=== PATIENT | female | born 1930 | race Caucasian/White ===

== ENCOUNTER → 2017-07-01 | Outpatient (CLI) | payer OTHER, BC ==
[~2017-07-01] VITALS: Ht 162.6 cm; Wt 71.7 kg
[~2017-07-01] MED LIST: ALDACTAZIDE 251 EAC1 PO; GABAPENTIN 100100 MG PO; KLOR-CON 1010 MEQ PO; LEVOTHYROXINE100 MC1 PO; LIPITOR 20 MG T20 M1 PO; MOBIC7.5 MG PO; NORCO 5-325 TA1 EACH PO; PREMPRO 0.3 MG1 EACH PO
--- NOTE | ~2017-07-01 | HPC ---
[facility] [address] [place] [address] PAIN MANAGEMENT CONSULTATION Name: HYUN THORNTON Room #: REG ADELAIDA Ayon#: [id number] Admission: 07/01/17 Attend Phys: Payton Landa MD Discharge: Date of : 32 Report #: [id number] THIS REPORT FOR: //name// CC: SUMI Landa DATE OF SERVICE: 07/01/2017 CHIEF COMPLAINT: Moved here from [place] and would like to be followed in the pain clinic. FOLLOWUP HISTORY: The patient is a very pleasant 86-year-old female who has a history of back pain. She has had surgery on three occasions from 1996 through 2000. She continues to have some pain and discomfort, which radiates down into her leg. She finds that gabapentin has been helpful. She does note some swelling in her legs as a result of this medication. She has undergone what sounds like epidural steroid injections and finds that they have been beneficial for about 4 months. Last injection was 02/2007. The patient finds that hydrocodone 5/325 one p.o. t.i.d. is helpful and enables her to engage in activities of daily living. She is having no problems with mentation or any untoward problems with use of this medication. ALLERGIES: TRAMADOL -- the patient states that she developed a dark area on her right shoulder. After stopping tramadol, this problem improved. CELEBREX. PAST MEDICAL HISTORY: Hypothyroidism, hyperlipidemia, osteopenia, venous insufficiency, hypertension, osteoarthritis, rosacea, vulvar lichen sclerosus, severe lumbar spondylosis. CURRENT MEDICATIONS: Gabapentin 100 mg in the morning and 100 mg in noon, 200 mg at bedtime; potassium 10 mEq, hydrocodone 5/325 mg tablets t.i.d., meloxicam 7.5 mg -- no GI complaints, Prempro 0.3 mg -- 1.5 mg tablets daily, Lipitor 20 mg, Synthroid 100 mcg, Aldactazide 25/25. PAST SURGICAL HISTORY: 1. Three prior lumbar surgeries with history of fusion from L4-L5. 2. Bilateral vein stripping. 3. Tonsillectomy. 4. Vulvar biopsy. 5. Bilateral cataract surgery. 6. Carpal tunnel surgery bilaterally. 7. Left cystectomy. FAMILY HISTORY: Father of a stroke. Mother of heart disease and breast cancer. Brother of Parkinson's. [address] [address] PAIN MANAGEMENT CONSULTATION Name: HYUN THORNTON Room #: REG CLI Nany#: [id number] Admission: 07/01/17 Attend Phys: Payton Landa MD Discharge: Date of : 32 Report #: [id number] SOCIAL HISTORY: She has four children, has moved with her who is a physician to [place]. has cancer. Distant history of smoking, quit 30 years ago. Occasional alcohol. Denies use of recreational drugs. REVIEW OF SYSTEMS: Questionnaire in the chart indicates generally good health, wears glasses for reading, uses stool softeners, weakness, varicose veins, numbness and tingling sensation in the right leg and down to the foot, improves with transforaminal epidural steroid injections; thyroid disease. PHYSICAL EXAMINATION: Blood pressure is 162/78, pulse 73, respiratory rate 14 and room air saturation is 97%. The patient walks with use of a cane. She feels that this helps to keep her in an upright position rather than slightly leaning to the right side. Continues to walk in the care home and feels that walking is okay. She has some swelling with compression stocking on the left and right feet. IMPRESSION: 1. Lumbar radiculopathy status post three prior surgeries with fusion at L4-L5. 2. Hypothyroidism. 3. Hyperlipidemia. 4. Osteopenia. 5. Venous insufficiency. 6. Hypertension. 7. Osteoarthritis. 8. Rosacea. 9. Vulvar lichen sclerosus. RECOMMENDATION: The patient has undergone transforaminal epidural steroid injections in the past with improvement. The patient feels that things are stable and does not need an injection at this juncture. She will continue with her current medical regimen. It seems like it is reasonable. She feels that this has been working for. Should things need to be adjusted in the future, we could make those adjustments. If the patient notes worsening of her pain, she could return to the pain clinic at which time she could undergo an epidural steroid injection if needed. We would like to thank you for letting us participate in her care. <ELECTRONICALLY SIGNED> By: Payton Landa MD 07/02/17 0822 1121 2339 Payton Landa MD /CLARKE
[2017-07-01 09:35] VITALS: BP 162/78
== END | disposition home or self-care (01) ==
LOC: PAIN 07:01
DX: M47.816 Spondylosis without myelopathy or radiculopathy, lumbar region (principal); E03.9 Hypothyroidism, unspecified; E78.5 Hyperlipidemia, unspecified; I10 Essential (primary) hypertension; M19.90 Unspecified osteoarthritis, unspecified site; Z80.3 Family history of malignant neoplasm of breast; Z88.8 Allergy status to other drugs, medicaments and biological substances

== ENCOUNTER → 2017-09-18 | Outpatient (CLI) | payer OTHER, BC ==
[~2017-09-18] VITALS: Ht 162.6 cm; Wt 71.2 kg
[~2017-09-18] MED LIST changes: +AMLODIPINE BESY10 MG PO; +MAGOX 400400 MG PO; +NORVASC5 MG PO; +OMEPRAZOLE 20 M20 M1 PO
--- NOTE | ~2017-09-18 | HPC ---
[facility] [address] [address] [place] [address] PAIN MANAGEMENT CONSULTATION Name: HYUN THORNTON Room #: REG ADELAIDA José.#: [id number] Admission: 09/18/17 Attend Phys: Payton Landa MD Discharge: Date of : 32 Report #: [id number] THIS REPORT FOR: //name// CC: SUMI Hart DATE OF SERVICE: 09/18/2017 FOLLOWUP COMPLAINT: "Pain is in the low back going down into my right buttocks and right thigh, here for an injection." FOLLOWUP HISTORY: The patient is an 86-year-old female who has history of back pain. She has had three surgeries since 1996. She finds that her pain has become more problematic with pain radiating down into her left as well as her right leg in the L4-L5 distribution today. She has undergone epidural steroid injections and found them beneficial. At this point, she is noting a rise in her pain. Rates it as a 5/10. She has pain and discomfort with numbness and tingling radiating down into her legs in the L5 distribution bilaterally. She continues to use gabapentin and hydrocodone 5/325 p.r.n. Finds that Mobic is helpful. She continues with these medications. ALLERGIES: TRAMADOL, CELEBREX. CURRENT MEDICATIONS: Gabapentin 100 mg t.i.d. one capsule morning, one afternoon, and one at bedtime, potassium 10 mEq, hydrocodone 5/325, meloxicam 7.5 mg, estrogen 0.3 mcg/1.5 mcg, Lipitor 20 mg, levothyroxine 100 mcg, Aldactazide 25/25. PHYSICAL EXAMINATION: VITAL SIGNS: Blood pressure 125/81, pulse 74, respiratory rate 16, room air saturation 97%. Height 5 feet 4 inches, weight 157 pounds, BMI is 26. GENERAL: The patient does need some help with walking. She has not fallen in the last 3 months. The patient uses a cane. No acute distress. EYES: Conjunctivae and lids appear normal. Nonicterus. Ears normal. Moist mucous membranes. HEAD: Atraumatic. NECK: Supple, nontender, no masses. RESPIRATORY: Breathing easy. No wheezes, no rhonchi. CARDIOVASCULAR: Regular rate. ABDOMEN: Nontender. EXTREMITIES: The patient complains of pain and discomfort in the lower portion of her back with pain radiating down into her L5-S1 distribution bilaterally. Walks with use of a cane. IMPRESSION: [facility] [address] [place] [address] PAIN MANAGEMENT CONSULTATION Name: HYUN THORNTON Room #: REG CLAna Nany#: [id number] Admission: 09/18/17 Attend Phys: Payton Landa MD Discharge: Date of : 32 Report #: [id number] 1. Lumbar radiculopathy status post three surgeries with fusion in the back in the L4-L5 area with rods and pedicle screws. 2. Hypothyroidism. 3. Hyperlipidemia. 4. Osteopenia. 5. Venous insufficiency. 6. Hypertension. 7. Osteoarthritis. 8. Rosacea. 9. Vulvar lichen sclerosus. RECOMMENDATIONS: We discussed the treatment plan with the patient. Risk of an epidural steroid injection was discussed given that the patient has had 3 back surgeries in the past. There remains a considerable amount of scar tissue. The possibility of infection, bleeding, worsening of pain, nerve trauma and spinal headache were discussed. The patient feels that she has gotten significant benefit from epidural steroid injections in the past. We will proceed using the transforaminal approach. PROCEDURE NOTE: The patient was taken was taken to the procedure room. Assistance was provided to help her get on the table. Her back was sterilely prepped with a Betadine solution and allowed to dry. A fluoroscopy technique using AP and lateral imaging was performed. The right L4-L5 area was sterilely prepped. A 20-gauge spinal needle was then advanced into the appropriate position using fluoroscopy. After appropriate placement, a total of 80 mg Depo-Medrol was injected. This area had been infiltrated with 0.25% bupivacaine. The contralateral side was treated in the same fashion. After appropriate placement of a 20-gauge spinal needle using the anterior and lateral approach, a total of 80 mg Depo-Medrol was injected. Total of 47 seconds fluoroscopy time was used. The patient's back was dried. A Band-Aid was placed at both the left and the right transforaminal site. The patient was then taken to the recovery room where she remained for an appropriate amount of time. There were no complications. Pain decreased to 3 at the time of discharge. She will follow up in the future as needed. We would like to thank you for letting us participate in her care. We hope she continues to improve. <ELECTRONICALLY SIGNED> By: Payton Landa MD 09/30/17 0837 1250 1817 Payton Landa MD /CLARKE
[2017-09-18 13:39] VITALS: BP 123/81
== END | disposition home or self-care (01) ==
LOC: PAIN 07:18
DX: M54.16 Radiculopathy, lumbar region (principal); E03.9 Hypothyroidism, unspecified; E78.5 Hyperlipidemia, unspecified; M85.80 Other specified disorders of bone density and structure, unspecified site; I87.2 Venous insufficiency (chronic) (peripheral); M19.90 Unspecified osteoarthritis, unspecified site; L71.9 Rosacea, unspecified; L90.0 Lichen sclerosus et atrophicus; Z88.8 Allergy status to other drugs, medicaments and biological substances; Z79.891 Long term (current) use of opiate analgesic; Z79.899 Other long term (current) drug therapy; Z98.890 Other specified postprocedural states

== ENCOUNTER → 2017-11-12 | Outpatient (CLI) | payer OTHER, BC | LOC: RAD 14:23 | DX: R05 Cough (principal); R50.9 Fever, unspecified; Z96.652 Presence of left artificial knee joint; Z98.890 Other specified postprocedural states ==

== ENCOUNTER → 2017-11-12 | Outpatient (CLI) | payer OTHER, BC ==
[2017-11-12 14:23] LABS: HEMOGLOBIN 13.2 gm/dL (12.0-15.0); MCH 31.4 pg (26.0-34.0); MCHC 33.8 g/dL (28.0-37.0); MCV 92.8 fL (80.0-100.0); PLATELET COUNT 352 thou/uL (150-400); RDW 13.5 % (10.5-14.5); WBC 10.4 thou/uL (4.0-11.0)
[2017-11-12 14:31] LABS: ALBUMIN 3.5 g/dL (3.4-5.0); CALCIUM 10.1 mg/dL (8.5-10.1); MAGNESIUM 1.4 mg/dL (1.8-2.4); POTASSIUM 3.7 mmol/L (3.5-5.1); TOTAL BILIRUBIN 0.3 mg/dL (<0.1-1.0); TOTAL PROTEIN 7.7 g/dL (6.4-8.2)
[2017-11-12 14:57] LABS: ABSOLUTE NEUTROPHILS 7.4 thou/uL (1.4-8.2); ANISOCYTOSIS SLIGHT
== END ==
LOC: SEN 13:17
PROVIDERS: Registered Nurse
DX: R05 Cough (principal); R50.9 Fever, unspecified; R41.3 Other amnesia; Z96.653 Presence of artificial knee joint, bilateral; Z96.612 Presence of left artificial shoulder joint; Z98.890 Other specified postprocedural states

== ENCOUNTER → 2018-01-14 | Outpatient (CLI) | payer OTHER, BC ==
[~2018-01-14] MED LIST changes: -AMLODIPINE BESY10 MG PO; -MAGOX 400400 MG PO; -NORVASC5 MG PO; -OMEPRAZOLE 20 M20 M1 PO
--- NOTE | ~2018-01-14 | EKG ---
[address] [address] ELECTROCARDIOGRAM REPORT Name: HYUN THORNTON JOSE R Room #: REG CLAna Ayon#: [id number] Admission: 01/14/18 Attend Phys: Luis Armando Coello DO Discharge: Date of : 32 Report #: [id number] THIS REPORT FOR: //name// [facility] Test Date: 2018-01-14 Test Time: 11:06:47 Pat Name: HYUN THORNTON Department: Room: Gender: F Dentist Private Practice: [facility]OME[facility] : 1930 Requested By: Chiquita Solorzano Order Number: [id number] MD: Pilo Alvarado Measurements Intervals [place] Rate: 67 P: 31 TN: 202 QRS: 221 QRSD: 94 T: 23 QT: 405 QTc: 428 Interpretive Statements Sinus rhythm posterior QRS axis No previous ECG available for comparison Electronically Signed On 01-15-2018 8:27:31 CDT by Pilo Alvarado [email or web address] <ELECTRONICALLY SIGNED> By: Pilo Alvarado MD, [facility] 01/15/18 0827 1106 1106 Pilo Alvarado MD, FACC /EPI
[2018-01-14 10:10] VITALS: BP 160/90
[2018-01-14 11:22] LABS: ABSOLUTE NEUTROPHILS 8.5 thou/uL (1.4-8.2); EOSINOPHILS 1.7 % (0.0-3.0); HEMATOCRIT 39.3 % (37.0-47.0); HEMOGLOBIN 13.7 gm/dL (12.0-15.0); LYMPHOCYTES 9.6 % (24.0-44.0); MCH 32.6 pg (26.0-34.0); MCHC 34.8 g/dL (28.0-37.0); MCV 93.6 fL (80.0-100.0); MONOCYTES 6.7 % (1.0-8.0); PLATELET COUNT 329 thou/uL (150-400); RDW 12.3 % (10.5-14.5); WBC 10.5 thou/uL (4.0-11.0)
[2018-01-14 11:22] LABS: URINE BILIRUBIN NEGATIVE (Negative); URINE BLOOD NEGATIVE (Negative); URINE CLARITY CLEAR; URINE COLOR YELLOW; URINE GLUCOSE-RANDOM* NEGATIVE (Negative); URINE KETONES NEGATIVE (Negative); URINE NITRITE-REFLEX NEGATIVE (Negative); URINE PROTEIN (DIPSTICK) NEGATIVE (Negative); URINE SPECIFIC GRAVITY <= 1.005 (1.005-1.035); URINE UROBILINOGEN 0.2 E.U./dl (0.2-1.0)
[2018-01-14 11:23] LABS: URINE LEUKOCYTES-REFLEX TRACE (Negative)
[2018-01-14 11:38] LABS: ALBUMIN 3.7 g/dL (3.4-5.0); ANION GAP 11 mmol/L (7-16); BUN 23 mg/dL (7-18); CALCIUM 8.9 mg/dL (8.5-10.1); CHLORIDE 98 mmol/L (98-107); CO2 26 mmol/L (21-32); CREATININE 1.1 mg/dL (0.6-1.0); GLUCOSE 97 mg/dL (74-106); MAGNESIUM 1.4 mg/dL (1.8-2.4); POTASSIUM 3.2 mmol/L (3.5-5.1); SGOT 22 U/L (15-37); SGPT 36 U/L (30-65); SODIUM 135 mmol/L (136-145); TOTAL BILIRUBIN 0.4 mg/dL (<0.1-1.0); TOTAL PROTEIN 7.4 g/dL (6.4-8.2); TROPONIN-I < 0.04 ng/mL (<0.06)
== END ==
LOC: SEN 09:07 → CV 09:07
PROVIDERS: Registered Nurse
DX: R07.9 Chest pain, unspecified (principal)

== ENCOUNTER → 2018-01-22 | Outpatient (CLI) | payer OTHER, BC ==
[~2018-01-22] VITALS: Ht 162.6 cm; Wt 69.6 kg
[~2018-01-22] MED LIST changes: +AMLODIPINE BESY10 MG PO; +NORVASC5 MG PO; +OMEPRAZOLE 20 M20 M1 PO
--- NOTE | ~2018-01-22 | HPC ---
[facility] [place] [address] [place] [address] PAIN MANAGEMENT CONSULTATION Name: HYUN THORNTON Room #: REG FRANSISCOAna José.#: [id number] Admission: 01/22/18 Attend Phys: Payton Landa MD Discharge: Date of : 32 Report #: [id number] THIS REPORT FOR: //name// CC: Luis Armando Hart DATE OF SERVICE: 01/22/2018 FOLLOWUP COMPLAINT: "Low back pain, its still going down into my left hip, left leg and ankle". FOLLOWUP HISTORY: The patient is an 87-year-old female who has been seen in the pain clinic and undergo an epidural steroid injection using the transforaminal ____. She has noted improvement in the past with this procedure. She returns today indicating that she had gleaned benefits from the last injection, but that her pain still is somewhat problematic and is a 5/10 at this juncture. As you may recall, she has had surgeries with pedicle screws and rods in the lower extremity or in the lower back area. She continues to use gabapentin, hydrocodone, Meloxicam to help quell her pain and discomfort. She has had no complications from the last injection. She describes it as a gnawing, sharp shooting pain. Pain is worsened when she stands in one place for too long. Walking is problematic. Notes that the pain improved somewhat with her medications as well as when she sits. Pain at this juncture, continues to go down the left hip, leg and ankle. The pain at the last treatment involved the right leg. She would like to proceed with another injection and hope for improvement in her pain. ALLERGIES: TRAMADOL. CURRENT MEDICATIONS: Meloxicam 7.5 mg daily, estrogen /Prempro 0.3 mg/1.5 mg tablet, Synthroid 100 mcg, Aldactazide 25/25, hydrocodone 5/325 one p.o. q.4-6h. p.r.n. pain, gabapentin 1 capsule in the morning, 1 capsule at noon, and 2 capsules at bedtime, omeprazole 20 mg, amlodipine 5 mg. PAIN CLINIC ASSESSMENT: 1. The patient has some spondylosis with changes in the lumbar area. 2. History of rheumatoid arthritis. The patient is not being treated specifically for rheumatoid arthritis. 3. Height 5 feet 4 inches, weight 154 pounds, BMI is 26. 4. Vital signs: Blood pressure 188/108, pulse 78, respiratory rate 20, room air O2 saturation is 98%. 5. Pain intensity 5/10. 6. Fall risk. The patient has not fallen in the last 3 months. She does use a cane for support and as an ambulatory device. 7. Blood thinner. The patient [place] [address] PAIN MANAGEMENT CONSULTATION Name: HYUN THORNTON JOSE R Room #: REG CLI Nany#: [id number] Admission: 01/22/18 Attend Phys: Payton Landa MD Discharge: Date of : 32 Report #: [id number] 8. History of hypertension. The patient is being treated for hypertension. 9. Risk assessment tool 09/23, which is low for opioid use. 10. Functional assessment tool indicating moderate problems with pain secondary to activities of daily living. 11. Drug use. The patient denies use of recreational drugs. 12. Tobacco. The patient has never smoked. 13. Alcohol, patient occasionally drinks an alcoholic beverage. PHYSICAL EXAMINATION: GENERAL: The patient is a well-developed white female, appears her stated age. She is alert and oriented x 3. Affect is appropriate. Speech is fluent. HEENT: Normocephalic, atraumatic. Extraocular eye muscles intact. Hearing, generally within normal limits. Mucous membranes are moist. Neck, good range of motion. HEART: Regular rate. MUSCULOSKELETAL: Upper extremity muscle strength is judged to be 4+ for the major muscle groups of the upper extremity. Lower extremity muscle strength is judged to be 4+ for the major muscle groups of the lower extremity. She has pain and discomfort, which radiates down into the left L5-S1 nerve root distribution. She is accompanied by her son who is an Emergency Room physician. IMPRESSION: 1. Lumbar radiculopathy status post three surgeries in the lower back with fusion at L4-L5. 2. Hypothyroidism. 3. Hyperlipidemia. 4. Osteopenia. 5. Venous insufficiency. 6. Hypertension. 7. Osteoarthritis. 8. Rosacea. 9. Vulvar Lichen sclerosus. RECOMMENDATIONS: We discussed treatment options with the patient and her son who is an Emergency Room physician. Risks and benefits of the procedure were discussed. They could include but are not limited to infection, increased muscle soreness, headache, bleeding, worsening of pain, nerve damage. She and he agreed to proceed. PROCEDURE NOTE: The patient was taken to the procedure room. She was assisted in getting on the examination table. Fluoroscopy using the anterior, posterior as well as lateral viewing was a cyst, it was provided to assist a needle placement. Her back had been sterilely prepped in the lumbar L5-S1 area. A 20-gauge spinal needle was then advanced into the appropriate, L5-S1 area. After appropriate confirmation, a total of 80 mg Depo-Medrol with 2 mL 0.25% bupivacaine was injected. The patient tolerated the procedure well. There were [facility] [place] [address] PAIN MANAGEMENT CONSULTATION Name: HYUN THORNTON JOSE R Room #: REG Ana José.#: [id number] Admission: 01/22/18 Attend Phys: Payton Landa MD Discharge: Date of : 32 Report #: [id number] no complications. She remained in the pain clinic for an appropriate amount of time. Total of 47 seconds fluoroscopy time was used. The patient will follow up in the near future as needed. We would like to thank you for letting us participate in her care. We hope she continues to improve. By: 1343 1845 Payton Landa MD /nt
[2018-01-22 08:38] VITALS: BP 188/108
== END | disposition home or self-care (01) ==
LOC: PAIN 08:13
DX: M54.16 Radiculopathy, lumbar region (principal); G89.29 Other chronic pain; I10 Essential (primary) hypertension; E03.9 Hypothyroidism, unspecified; E78.5 Hyperlipidemia, unspecified; M19.90 Unspecified osteoarthritis, unspecified site; M81.0 Age-related osteoporosis without current pathological fracture; I87.2 Venous insufficiency (chronic) (peripheral); L71.9 Rosacea, unspecified; N90.4 Leukoplakia of vulva; Z88.8 Allergy status to other drugs, medicaments and biological substances; Z79.899 Other long term (current) drug therapy; Z98.890 Other specified postprocedural states; Z79.891 Long term (current) use of opiate analgesic

== ENCOUNTER → 2018-02-05 | Outpatient (CLI) | payer OTHER, BC ==
[~2018-02-05] VITALS: Ht 162.6 cm; Wt 70.4 kg
[~2018-02-05] MED LIST changes: +MAGOX 400400 MG PO
--- NOTE | ~2018-02-05 | HPC ---
[facility] [address] [place] [address] PAIN MANAGEMENT CONSULTATION Name: HYUN THORNTON Room #: REG ADELAIDA José.#: [id number] Admission: 02/05/18 Attend Phys: Payton Landa MD Discharge: Date of : 32 Report #: [id number] THIS REPORT FOR: //name// CC: Luis Armando Landa DATE OF SERVICE: 02/12/2018 FOLLOWUP COMPLAINT: Low back pain that still goes down into my left hip and around the left outside of my thigh. This also wrapping around the front of my calf and ankle. FOLLOWUP HISTORY: The patient is an 87-year-old female who has moved to [place] from [place]. She has a complaint of low back pain. She has undergone back surgery in the past. She has rods and pedicle screws in place in the low back area for stabilization. She is having pain, which is radiating down the left side of her hip and down into the thigh in the L4/L5 distribution. She has undergone transforaminal epidural steroid injections on the right side as well as the left side. She notes that the right side has improved, but continues to have some discomfort radiating down into her left hip area. She would like to proceed with another injection. The transforaminal approach was used at the last visit and we discussed it. She would like to proceed with another. Her son who is a Emergency Room doctor concurs that there will be a reasonable procedure at this juncture. ALLERGIES: TRAMADOL. CURRENT MEDICATIONS: Meloxicam 7.5 mg daily, estrogen/Prempro 0.3 mg/1.5 mg tablets, Synthroid 100 mcg, Aldactazide 25/25, hydrocodone 5/325 one p.o. 4-6 hours p.r.n. pain, gabapentin 1 capsule in the morning, 1 capsule at noon, 2 capsules at bedtime, omeprazole 20 mg, amlodipine 5 mg daily. PAIN ASSESSMENT: 1. History of osteoarthritis involving low back area with pedicle screws in place. 2. Height 5 feet 4 inches, weight 155 pounds, BMI is 26. 3. Vital signs: Blood pressure 158/92, pulse 67, respiratory rate 18, room air saturation 97%. 4. Pain intensity 3-4 now can rise to the level 8 in the afternoon. 5. Fall risk. The patient has not fallen in the last 3 months. Does need some assistance with walking. 6. The patient is not on a blood thinner. 7. History of hypertension. The patient has not been treated for hypertension. 8. Opioid therapy greater than 6 weeks. The patient is on an opioid contract. 9. Risk assessment tool, low risk [place] [address] PAIN MANAGEMENT CONSULTATION Name: THORNTONHYUN Room #: REG CLAna Ayon#: [id number] Admission: 02/05/18 Attend Phys: Payton Landa MD Discharge: Date of : 32 Report #: [id number] 10. Functional assessment tool 18 out of 70 showing moderate to mild effects on activities of daily living secondary to the pain. 11. Recreational drug use. Denies use of recreational drugs. 12. Tobacco: The patient has never smoked. 13. Alcohol. The patient rarely uses alcoholic beverages. PHYSICAL EXAMINATION: GENERAL: The patient is a well-developed white female. She appears her stated age. She is alert and oriented. Her affect is appropriate. Speech is fluent, has a good grasp of the situation. HEENT: Normocephalic, atraumatic. Extraocular eye muscles intact. Hearing within normal limits. Sclerae nonicteric. Mucous membranes are moist. NECK: Without adenopathy. Good range of motion. HEART: Regular rate. ABDOMEN: Nontender. MUSCULOSKELETAL: Upper extremity muscle strength is judged to be 4/5 for the major muscle groups of the upper extremity. Lower extremity muscle strength is judged to be 4+ for the major muscle groups of the lower extremity. She has pain and discomfort which is radiating down into the left L4-L5 dermatomal distribution. IMPRESSION: 1. Lumbar radiculopathy status post three surgeries in her lower back with fusion at L4-L5 with pain radiating in the L5/L4 dermatomal distribution. 2. Hypothyroidism. 3. Hyperlipidemia. 4. Osteopenia. 5. Venous insufficiency. 6. Hypertension. 7. Osteoarthritis. 8. Rosacea. 9. Vulvar lichen sclerosus. RECOMMENDATIONS: We discussed treatment options with the patient and her son who is the Emergency Room physician. Again, we would proceed with an epidural steroid injection using the transforaminal approach given that the anatomy has been altered secondary to surgery. We will proceed with an injection with hopes that she would clean benefit from this. Risks and benefits of the procedure, which could include infection, increased muscle soreness, worsening of pain, increased pain, no improvement were discussed and she elects to proceed. PROCEDURE NOTE: The patient was taken to the fluoroscopy area. She was assisted in getting on the fluoroscopy table. She was placed in the prone position. Her back was sterilely prepped with a Betadine solution. Fluoroscopy using anterior, posterior as well as lateral imaging were used to place the needle at the left transforaminal L5/L4 area. This area had been sterilely [address] [address] PAIN MANAGEMENT CONSULTATION Name: HYUN THORNTON Room #: REG [facility].#: [id number] Admission: 02/05/18 Attend Phys: Payton Landa MD Discharge: Date of : 32 Report #: [id number] prepped with Betadine and infiltrated with 0.25% bupivacaine. A total of 80 mg Depo-Medrol was injected after the needle was appropriately placed and corroborated using fluoroscopy. A total of 80 mg Depo-Medrol was injected with 1 mL of 0.25% bupivacaine. The patient tolerated the procedure well. There were no complications. Her pain changed from 4-1-2 at the time of discharge. Total of 48 seconds fluoroscopy time was used. We would like to thank you for letting us participate in her care. We hope she continues to improve. By: [id number] [id number] Payton Landa MD /CL[place]
[2018-02-05 09:01] VITALS: BP 158/92
== END | disposition home or self-care (01) ==
LOC: PAIN 07:16
DX: M54.16 Radiculopathy, lumbar region (principal); G89.29 Other chronic pain; I10 Essential (primary) hypertension; E03.9 Hypothyroidism, unspecified; E78.5 Hyperlipidemia, unspecified; M85.80 Other specified disorders of bone density and structure, unspecified site; I87.2 Venous insufficiency (chronic) (peripheral); M19.90 Unspecified osteoarthritis, unspecified site; L71.9 Rosacea, unspecified; Z88.8 Allergy status to other drugs, medicaments and biological substances; Z79.899 Other long term (current) drug therapy; Z79.891 Long term (current) use of opiate analgesic; Z98.890 Other specified postprocedural states

== ENCOUNTER → 2018-04-14 | Outpatient (CLI) | payer OTHER, BC ==
[~2018-04-14] VITALS: Ht 162.6 cm; Wt 70.4 kg
--- NOTE | ~2018-04-14 | HPC ---
[facility] [place] [address] PAIN MANAGEMENT CONSULTATION Name: HYUN THORNTON Room #: REG ADELAIDA José.#: [id number] Admission: 04/14/18 Attend Phys: Payton Landa MD Discharge: Date of : 32 Report #: [id number] THIS REPORT FOR: //name// CC: Luis Armando Hart DATE OF SERVICE: 04/14/2018 FOLLOWUP COMPLAINT: "Pain still is down in the low back and going down into my left leg and thigh." FOLLOWUP HISTORY: The patient is an 87-year-old female who has been seen in the Pain Clinic in the past because of lumbar radiculopathy. As you recall, she has had back problems. She has undergone transforaminal epidural steroid injections and gleaned some benefit from these. She continues to have pain, which is still quite problematic. She has had rods and pedicle screws placed. She also has spacers in the L4-L5 area. She feels she has tried Medrol Dosepak in the past. She continues to find that the sciatica is quite problematic. She is noting more pain when she is standing in one place for too long. Walking exacerbates the pain as well. Use of her medications and sitting can be helpful. Pain is continuing to be problematic as it radiates down into her leg and she has a perception that it is wrapping around her calf and in the ankle on the left side. At this juncture, because her pain continues to be quite problematic, she would like to proceed with another epidural steroid injection. ALLERGIES: TRAMADOL. CURRENT MEDICATIONS: Meloxicam 7.5 mg; estrogen/Prempro 0.3 mg/1.5 mg tablets; Synthroid 100 mcg; Aldactazide 25/25; hydrocodone 5/325 one p.o. q. 4-6 hours p.r.n. pain; gabapentin 1 capsule in the morning, 1 capsule at noon, and 2 capsules at bedtime; omeprazole 20 mg; amlodipine 5 mg. PAIN CLINIC ASSESSMENT: 1. The patient has a history of osteoarthritis in the low back area and has pedicle screws in place. 2. Height 5 feet 4 inches, weight 155 pounds, BMI is 26.2. 3. Vital signs: Blood pressure 164/92, pulse 89, respiratory rate 16, room air saturation 98%. 4. Pain intensity: 5/10. 5. Fall risk: The patient has not fallen in the last 3 months. 6. Blood thinner: The patient is not on a blood thinning medication. 7. History of hypertension: The patient is not being treated for hypertension. 8. Opioid therapy greater than 6 weeks: The patient is using opioid medication sparingly. 9. Functional assessment tool: [place] [address] PAIN MANAGEMENT CONSULTATION Name: HYUN THORNTON JOSE R Room #: REG CLAna Ayon#: [id number] Admission: 04/14/18 Attend Phys: Payton Landa MD Discharge: Date of : 32 Report #: [id number] 10. Functional assessment tool: . 11. Recreational drug use: The patient denies use of recreational drugs. 12. Tobacco: The patient denies use of tobacco. 13. Alcohol: The patient denies use of alcoholic beverages. PHYSICAL EXAMINATION: GENERAL: The patient is a well-developed, well-nourished white female. Appears her stated age. She is alert and oriented. Her affect is appropriate. Speech is fluent. She has good grasp of her situation. She is accompanied by her daughter. Her son is an emergency room doctor at [employer]. HEENT: Normocephalic, atraumatic. Extraocular eye muscles intact. Hearing within normal limits. Sclerae nonicteric. Mucous membranes are moist. NECK: Without adenopathy. Good range of motion. HEART: Regular rate. ABDOMEN: Nontender. CHEST: Clear to auscultation without rhonchi or rales. MUSCULOSKELETAL: Strength is judged to be 4/5 for the major muscle groups of the upper extremity and 4+ for the major muscle groups in the lower extremity. She has pain and discomfort, which continues to radiate down into the L4-L5 dermatomal distribution, involves the left leg. IMPRESSION: 1. Lumbar radiculopathy, status post 3 surgeries on the low back with fusion at L4-L5 with pain that continues to radiate in the L4-L5 dermatomal distribution. 2. Hypothyroidism. 3. Hyperlipidemia. 4. Osteopenia. 5. Venous insufficiency. 6. Hypertension. 7. Osteoarthritis. 8. Rosacea. 9. Vulvar lichen sclerosus. RECOMMENDATIONS: We discussed treatment options with the patient and her daughter. We discussed the use of opioid medications. Given the patient's current situation, I think it is reasonable for her to continue with opioid medications to help with her pain. She is not finding any problems with confusion. She finds that there is a clear benefit to this. She would like to proceed with another injection. Again, an explanation of why her current medication use was provided for the daughter and that she can call us if she has any concerns. PROCEDURE NOTE: The patient was taken to the procedure area. Fluoroscopy was used to identify the L5-L4 interspace. Anterior, posterior as well as lateral viewing were provided. The patient was placed in the prone position. A pillow was under her abdomen to bolster her positioning. Her back was sterilely [facility] [address] [place] [address] PAIN MANAGEMENT CONSULTATION Name: HYUN THORNTON [facility] [id number] Admission: 04/14/18 Attend Phys: Payton Landa MD Discharge: Date of : 32 Report #: [id number] prepped with Betadine solution and allowed to dry. 0.25% bupivacaine was infiltrated. A 20-gauge spinal needle was then advanced into the left transforaminal area. After appropriate placement, a total of 80 mg Depo-Medrol was injected. The patient tolerated the procedure well. She was taken to the recovery room. There was no bleeding. A Band-Aid has been placed. She remained in the Pain Clinic for an appropriate amount of time. We would like to thank you for letting us participate in her care. We hope she continues to improve. A total of 42 seconds fluoroscopy time was used. The patient's pain decreased to 0 at the time of discharge. <ELECTRONICALLY SIGNED> By: Payton Landa MD 04/16/18 [id number] [id number] Payton Landa MD /nt
[2018-04-14 13:20] VITALS: BP 164/92
== END | disposition home or self-care (01) ==
LOC: PAIN 06:28
DX: M54.16 Radiculopathy, lumbar region (principal); I10 Essential (primary) hypertension; E03.9 Hypothyroidism, unspecified; E78.5 Hyperlipidemia, unspecified; M19.90 Unspecified osteoarthritis, unspecified site; M81.0 Age-related osteoporosis without current pathological fracture; I87.2 Venous insufficiency (chronic) (peripheral); L71.9 Rosacea, unspecified; L90.0 Lichen sclerosus et atrophicus; Z88.8 Allergy status to other drugs, medicaments and biological substances; Z79.891 Long term (current) use of opiate analgesic; Z79.899 Other long term (current) drug therapy; Z98.890 Other specified postprocedural states

== ENCOUNTER → 2018-09-10 | Outpatient (CLI) | payer OTHER, BC ==
[~2018-09-10] VITALS: Ht 162.6 cm; Wt 69.2 kg
--- NOTE | ~2018-09-10 | HPC ---
[facility] [place] [address] PAIN MANAGEMENT CONSULTATION Name: HYUN THORNTON Room #: REG Ana José.#: [id number] Admission: 09/10/18 Attend Phys: Payton Landa MD Discharge: Date of : 32 Report #: [id number] THIS REPORT FOR: //name// CC: Luis Armando Hart DATE OF SERVICE: 09/10/2018 CHIEF COMPLAINT: Here for another epidural injection. Pain has returned. HISTORY: The patient is an 87-year-old female who has been followed in the pain clinic because of lumbar radiculopathy. She has undergone transforaminal epidural steroid injections. She has had some extensive surgeries in the back. She has rods and pedicle has been placed. She also has cages in the low back area in the L4-L5 section. She has noted a worsening of her pain. She is experiencing pain, which is primarily on the left side with radiation down into her left leg. This is in the L4-L5 distribution. She has returned today with the hope of undergoing another epidural steroid injection using the transforaminal approach and noting with benefit to help decrease her pain. ALLERGIES: TRAMADOL. CURRENT MEDICATIONS: Meloxicam 7.5 mg, estrogen/Prempro 0.3/1.5 mg tablets, Synthroid 100 mcg, Aldactazide 25/25, hydrocodone 5/325 mg one p.o. q.4-6 hours, gabapentin 1 capsule in the morning, 1 capsule at noon, 2 capsules at bedtime, omeprazole 20 mg, amlodipine 5 mg. PAIN CLINIC ASSESSMENT/PQRS: 1. The patient has a history of osteoarthritis and low back area and has pedicle screws in place. She has not been treated for rheumatoid arthritis. 2. Height 5 feet 4 inches, weight 152 pounds, BMI is 26. 3. Vital Signs: Blood pressure 143/82, pulse 68, respiratory rate 16, room air saturation 97%. 4. Pain intensity 12/29. 5. Fall risk. The patient has not fallen in the last 3 months. 6. Blood thinner. The patient is not on a blood thinning medication. 7. Hypertension. The patient is not being treated for hypertension. 8. Opioid greater than 6 weeks. The patient receives her medication from one source, the pain clinic. 9. Risk assessment tool 09/23 low for opioid use. 10. Functional assessment 218/70. 11. Recreational drug use. The patient denies use of recreational drugs. 12. Tobacco: The patient denies use of tobacco. 13. Alcohol: The patient denies use of alcoholic beverages. [address] [address] PAIN MANAGEMENT CONSULTATION Name: HYUN THORNTON JOSE R Room #: REG CL Arnav.#: [id number] Admission: 09/10/18 Attend Phys: Payton Landa MD Discharge: Date of : 32 Report #: [id number] PHYSICAL EXAMINATION: GENERAL: The patient is a well-developed, well-nourished white female. Appears her stated age. She is alert and oriented x 3. Affect is appropriate. Speech is fluent. HEENT: Normocephalic, atraumatic. Extraocular eye muscles intact. NECK: Without adenopathy or JVD. Good range of motion. HEART: Regular rate. ABDOMEN: Nontender. CHEST: Clear to auscultation without rhonchi or rales. MUSCULOSKELETAL: Strength judged to be 4/5 for the major muscle groups in the upper extremity and 4+ for the major muscle groups in the lower extremity. Has pain and discomfort, which is radiating down into the left L4-L5 dermatomal distribution involving her left leg. IMPRESSION: 1. Lumbar radiculopathy, status post three surgeries of the lumbar back with fusion at L4-L5 with placement of cages and pedicle screws and rods. 2. Hypothyroidism. 3. Hyperlipidemia. 4. Osteopenia. 5. Venous insufficiency. 6. Hypertension. 7. Osteoarthritis. 8. Rosacea. 9. Vulvar lichen sclerosus. RECOMMENDATIONS: We discussed treatment options with the patient. Risks and benefits of a transforaminal epidural steroid injection were again reviewed. Possible complications of the procedure, which could include, but are not limited to infection, worsening of pain, no improvement in pain, nerve damage with weakness were discussed and the patient elects to proceed. PROCEDURE NOTE: The patient was taken to the procedure area. She was assisted in getting on the examination table. Her back was sterilely prepped with a Betadine solution and allowed to dry. Fluoroscopy using anterior, posterior as well as lateral viewing were implemented. A transforaminal injection at the L4-L5 area was provided using fluoroscopy guidance. After appropriate placement, a 20-gauge needle was then placed at this level. Aspiration was negative. A total of 80 mg Depo-Medrol, 40 mg triamcinolone were injected. The patient tolerated the procedure well. There were no complications. She remained in the pain clinic for an appropriate amount of time. She will follow up in the future as needed. Total of 22 seconds fluoroscopy time was used. By: 0847 [id number] Payton Landa MD /PMT
[2018-09-10 08:40] VITALS: BP 143/82
== END | disposition home or self-care (01) ==
LOC: PAIN 08:19
DX: M54.16 Radiculopathy, lumbar region (principal); G89.29 Other chronic pain; E03.9 Hypothyroidism, unspecified; E78.5 Hyperlipidemia, unspecified; M85.80 Other specified disorders of bone density and structure, unspecified site; I87.2 Venous insufficiency (chronic) (peripheral); I10 Essential (primary) hypertension; M19.90 Unspecified osteoarthritis, unspecified site; L71.9 Rosacea, unspecified; Z88.8 Allergy status to other drugs, medicaments and biological substances; Z79.891 Long term (current) use of opiate analgesic; Z79.899 Other long term (current) drug therapy; Z98.890 Other specified postprocedural states

== ENCOUNTER → 2019-02-02 | Outpatient (CLI) | payer OTHER, BC ==
[~2019-02-02] VITALS: Ht 162.6 cm; Wt 68.0 kg
[~2019-02-02] MED LIST changes: +MYRBETRIQ25 MG PO
--- NOTE | ~2019-02-02 | HPC ---
[facility] [address] [place] [address] PAIN MANAGEMENT CONSULTATION Name: HYUN THORNTON JOSE R Room #: REG ADELAIDA José.#: [id number] Admission: 02/02/19 ������������������ Attend Phys: Payton Landa MD Discharge: ������������������ Date of : 32 Report #: [id number] THIS REPORT FOR: //name// CC: Luis Armando Landa DATE OF SERVICE: 02/02/2019 CHIEF COMPLAINT: Pain was helped with the last injection and would like to have another one. HISTORY: The patient is an 88-year-old female who has been seen in the pain clinic because of chronic pain. She has undergone instrumentation in the low back area with cages. She also has rods and pedicle screws for stabilization. She is having pain and discomfort, which has improved after the last injection, but still continues to be problematic. She rates the pain as 5/10 at this juncture. Notes that the pain is going down into her left hip and wraps around her thigh. She feels that there is some numbness taking place in this area. She notes that her leg feels somewhat weaker when she is walking. There has been some swelling noted. She has been using meloxicam and feels that this medication is beneficial. Has used some hydrocodone to help with the pain. She has used gabapentin. Does have some problems with her left as well as her right shoulder. 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 She has had surgery, repair of her left shoulder. Still has decreased range of motion. She has returned today with a desire to undergo an epidural steroid injection to see whether or not this would provide more benefit to the low back pain she is constantly experiencing. ALLERGIES: TRAMADOL. CURRENT MEDICATIONS: Meloxicam 7.5 mg, estrogen/Prempro 0.3/1.5 mg tablets, Synthroid 100 mcg, Aldactazide 25 mg, hydrocodone 5/325 one p.o. 4-6 hours, gabapentin 1 capsule in the morning, 1 capsule at noon, 2 capsules at bedtime, omeprazole 20 mg, and amlodipine 5 mg. PAIN CLINIC ASSESSMENT AND PQRS: 1. The patient has a history of osteoarthritis in the low back area and has pedicle screws placed in the low back area. She has not been treated for rheumatoid arthritis. 2. Height 5 feet 4 inches, weight is 150 pounds, BMI is 25.7. 3. Vital signs; blood pressure 152/82, pulse 82, respiratory rate 18, room air saturation 97%. 4. Pain intensity 5/10. 5. Fall history. The patient has not fallen in the last 3 months. 6. Blood thinner. The patient is not on a blood thinning medication. 7. Hypertension. The patient is not being treated for hypertension. [address] [address] PAIN MANAGEMENT CONSULTATION Name: HYUN THORNTON JOSE R Room #: REG CLI [facility].#: [id number] Admission: 02/02/19 ������������������ Attend Phys: Payton Landa MD Discharge: ������������������ Date of : 32 Report #: [id number] 8. Opioids greater than 6 weeks. The patient is not on a chronic opioid regimen. 9. Functional assessment tool is . 10. Recreational drug use. The patient denies use of recreational drugs. 11. Tobacco: The patient has never smoked. 12. Alcohol: The patient denies frequent use of alcoholic beverages. PHYSICAL EXAMINATION: GENERAL: The patient is a well-developed, well-nourished white female. Appears her stated age. She is alert and oriented x 3. Her affect is appropriate. Speech is fluent. HEENT: Normocephalic, atraumatic. Extraocular eye muscles intact. Sclerae nonicteric. Mucous membranes are moist. NECK: Without adenopathy or JVD. Decreased range of motion in her left as well as the right shoulder. The patient has frozen shoulder syndrome and is unable to raise her arms above her shoulders. HEART: Regular rate. ABDOMEN: Nontender. CHEST: Clear to auscultation without rhonchi. MUSCULOSKELETAL: Muscle strength in the upper extremity is judged to be 3+ for the major muscle groups. Lower extremity, 4+ for the major muscle groups in the lower extremity. The patient is complaining of pain and discomfort that is radiating down into the left L4-L5 dermatomal distribution. IMPRESSION: 1. Lumbar radiculopathy, status post three surgeries of the lumbar area with fusion at L4-L5 and placement of cages and pedicle screws with rods. 2. Hypothyroidism. 3. Hyperlipidemia. 4. Osteopenia. 5. Venous insufficiency. 6. Hypertension. 7. Osteoarthritis. 8. Rosacea. 9. Vulvar Lichen sclerosus. RECOMMENDATIONS: We discussed treatment options with the patient. Risks and benefits of an epidural steroid injection using the transforaminal approach because of her previous surgery was discussed. Possible complications of the procedure were reviewed. The patient feels that her last injection was beneficial and would like to proceed with another injection with the hope that her pain would improve even more. There were no complications. We discussed the risk and benefits which could include but are not limited to infection, worsening of pain, no improvement in pain, bleeding, headache. The patient elects to proceed. [facility] [address] [place] [address] PAIN MANAGEMENT CONSULTATION Name: HYUN THORNTON Room #: REG CLAna Ayon#: [id number] Admission: 02/02/19 ������������������ Attend Phys: Payton Landa MD Discharge: ������������������ Date of : 32 Report #: [id number] PROCEDURE NOTE: The patient was placed in the prone position. Fluoroscopy was used to identify the left L4-L5 dermatomal area. A 0.25% bupivacaine was infiltrated at this level with a 25-gauge needle. A skin wheal was placed. A 20-gauge spinal needle was then advanced using fluoroscopic guidance to the appropriate place for placement at the left L4-L5 transforaminal site. Aspiration was negative. There were no complications. A total of 80 mg Depo-Medrol, 40 mg triamcinolone were injected. The patient tolerated the procedure well. She remained in the Pain Clinic for an appropriate amount of time. She will follow up in the future as needed. Her pain was 2-3 at the time of discharge. A total of 16 seconds fluoroscopy time was used. We have discussed the injection of her left shoulder. She does have shoulder replacement. We explained to her that injections in this area could be problematic, if should one get an infection. Hopefully, the steroid in the epidural injection will flow systemic and improve her left shoulder pain as well. We would like to thank you for letting us participate in her care. ��������������������������������������������� ���������������������������������������� By: ��������������������������������������������� [id number] Payton Landa MD /nt
[2019-02-02 12:43] VITALS: BP 152/82
--- NOTE | 2019-02-02 12:45 | NUR ---
Pain Clinic Assessment: 1. History of Osteoarthritis: Not Applicable Not Applicable History of Rheumatoid Arthritis: Not Applicable 2. Height: 5 ft. 4 in. 162.6 cm. Weight: 150.0 lb. oz. 68.040 kg. Patient's BMI: 25.7 3. Vital Signs: BP: 152/82 Pulse: 82 Resp: 18 Temp: 02 Sat: 97 ECG Mon: 4. Pain Intensity: 5 5. Fall Risk: Dizziness: Needs help standing or walking: Fallen in the last 3 months: Fall risk comments: 6. Patient on Blood Thinner: None 7. History of Hypertension: N 8. Opioid Therapy greater than 6 weeks: N Opiate Contract Signed: 9. Risk Assessment Tool Provided: LOW RISK 09/23 10. Functional Assessment Tool: 11. Recreational Drug Use: Never Drug Type: Tobacco Use: Never Smoker Tobacco Type: Amount or Packs/day: How Many Years: Alcohol Use: No Frequency: Quant:
== END | disposition home or self-care (01) ==
LOC: PAIN 07:01
DX: M54.16 Radiculopathy, lumbar region (principal); G89.29 Other chronic pain; M25.512 Pain in left shoulder; I10 Essential (primary) hypertension; I87.2 Venous insufficiency (chronic) (peripheral); E03.9 Hypothyroidism, unspecified; M85.80 Other specified disorders of bone density and structure, unspecified site; E78.5 Hyperlipidemia, unspecified; M19.90 Unspecified osteoarthritis, unspecified site; Z98.890 Other specified postprocedural states; Z79.899 Other long term (current) drug therapy; Z79.891 Long term (current) use of opiate analgesic; Z96.612 Presence of left artificial shoulder joint

== ENCOUNTER → 2019-05-20 | Outpatient (CLI) | payer OTHER, BC ==
[~2019-05-20] VITALS: Ht 162.6 cm; Wt 68.0 kg
--- NOTE | ~2019-05-20 | HPC ---
[facility] [address] [place] [address] PAIN MANAGEMENT CONSULTATION Name: HYUN THORNTON JOSE R Room #: REG ADELAIDA José.#: [id number] Admission: 05/20/19 Attend Phys: Payton Landa MD Discharge: Date of : 32 Report #: [id number] THIS REPORT FOR: //name// CC: Luis Armando Landa DATE OF SERVICE: 05/20/2019 CHIEF COMPLAINT: Pain has returned and it does not go down my leg as far, but is also on the other side. HISTORY: The patient is an 88-year-old female who has been followed in the Pain Clinic because of lumbar radiculopathy. As you may recall, she has had back surgery. She has had cages placed. She has pedicle screws as well as rodding in the lumbar area. Still finds that her pain is problematic. She underwent an epidural steroid injection in the past and gleaned benefit from that. She has returned today with an increased level of pain and would like to pursue another epidural steroid injection with the hopes that this would provide benefit in helping decrease her pain. She has seen advertisement for CBD oil. She is wondering whether or not this would be helpful. She was provided with a Medrol Dosepak. She noticed that that has provided some benefit. She did have some lower extremity edema. It was felt that it might be secondary to the gabapentin. She has decreased the gabapentin medication somewhat at this point. Rates her pain as an 8/10. Notes that the pain continues to be quite problematic if she stands in one place too long. Walking can be problematic as well. ALLERGIES: TRAMADOL. CURRENT MEDICATIONS: Meloxicam 7.5 mg, estrogen/Prempro 0.3/1.5 mg tablets, Synthroid 100 mcg, Aldactazide 25 mg, hydrocodone 5/325 one p.o. 4-6 hours, gabapentin with a reduced dosing, omeprazole 20 mg, and amlodipine. PAIN CLINIC ASSESSMENT/PQRS: 1. The patient has a history of osteoarthritis in her low back area and has had pedicle screws as well as cages placed. She is not being treated for rheumatoid arthritis. 2. Height 5 feet 4 inches, weight 150 pounds, BMI 25.7. 3. Vital Signs: Blood pressure 160/79, pulse 85, respiratory rate 18, room air saturation 97%. 4. Pain intensity, 04/30. 5. Fall history: The patient has not fallen in the last 3 months. 6. Blood thinner. The patient is not on a blood thinning medication. 7. Hypertension. The patient is not being treated for hypertension. 8. Opioids greater than 6 weeks. The patient takes medications as prescribed. 9. Risk assessment tool, low for opioid use, 09/23. 10. Functional assessment tool, . [facility] [address] [place] [address] PAIN MANAGEMENT CONSULTATION Name: HYUN THORNTON JOSE R Room #: REG ADELAIDA Ayon#: [id number] Admission: 05/20/19 Attend Phys: Payton Landa MD Discharge: Date of : 32 Report #: [id number] 11. Recreational drug use. The patient denies use of recreational drugs. 12. Tobacco: The patient has never smoked. 13. Alcohol. The patient denies use of alcoholic beverages. PHYSICAL EXAMINATION: GENERAL: The patient is a well-developed, well-nourished white female. Appears her stated age. She is alert and oriented x 3. Her affect is appropriate. Speech is fluent. Her son is with her. HEENT: Normocephalic, atraumatic. Extraocular eye muscles intact. Sclerae nonicteric. Mucous membranes are moist. The patient is wearing glasses. NECK: Without adenopathy or JVD. Decreased range of motion on the left as well as the right shoulder. 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 HEART: Regular rate. ABDOMEN: Nontender. CHEST: Clear to auscultation without rhonchi. MUSCULOSKELETAL: The patient has muscle strength in the upper extremity judged to be 3+ for the major muscle groups. Lower extremity 4+/5 for the major muscle groups in lower extremity. The patient complains of pain and discomfort radiating down into the left L4-L5 and right L4-L5 buttocks area with increasing pain with prolonged standing or walking. The patient is walking with a walker at this time. IMPRESSION: 1. Lumbar radiculopathy, status post 3 surgeries of the lumbar area with fusion at L4-L5 and placement of cages and pedicle screws with rods. 2. Hypothyroidism. 3. Hyperlipidemia. 4. Osteopenia. 5. Venous insufficiency. 6. Hypertension. 7. Osteoarthritis. 8. Rosacea. 9. Vulvar lichen sclerosis. RECOMMENDATIONS: We discussed treatment options with the patient. The patient is wondering whether or not CBD oil would be helpful. I have explained to her that my experience with patients who have tried it, few have found it beneficial, but if she feels that it might be helpful might be a reasonable thing to try. We will proceed with a transforaminal epidural steroid injection on the right as well as the left side. She is having pain on both sides. The risks and benefits of the procedure were discussed. They include but are not limited to infection, worsening pain, no improvement, nerve damage, spinal headache. The patient elects to proceed. PROCEDURE NOTE: The patient was taken to the procedure area. She was then [facility] [address] [place] [address] PAIN MANAGEMENT CONSULTATION Name: HYUN THORNTON JOSE R Room #: REG CL Arnav.#: [id number] Admission: 05/20/19 Attend Phys: Payton Landa MD Discharge: Date of : 32 Report #: [id number] assisted in getting on examination table. A pillow was placed under her abdomen to bolster and improve positioning. Fluoroscopy using anterior, posterior as well as lateral viewing were implemented. The patient's back was sterilely prepped with a Betadine solution. It was allowed to dry. A 0.25% bupivacaine was infiltrated using a 25-gauge needle at the left L4-L5 area. A 25-gauge spinal needle was then advanced into the area of the L4-L5 nerve area. Aspiration was negative. The patient did not have any complaints of nerve pain or trauma during the procedure. Aspiration was negative. A total of 80 mg Depo-Medrol was injected. The patient tolerated this left-sided injection well. The right side was then treated in a like fashion. A 25-gauge needle at the L4-L5 area was used to anesthetize the skin. A 20-gauge spinal needle was then advanced into the area of the nerve at the L4-L5. Aspiration was negative. The patient did not experience any nerve pain or paresthesias. A total of 80 mg Depo-Medrol was then advanced. The patient tolerated the procedure well. Her pain decreased from 8 to 3 at the time of discharge. She will follow up in the future as needed. We would like to thank you for letting us participate in her care. We hope she continues to improve. By: [id number] Payton Landa MD /nt
[2019-05-20 08:31] VITALS: BP 160/79
--- NOTE | 2019-05-20 08:36 | NUR ---
Pain Clinic Assessment: 1. History of Osteoarthritis: Not Applicable Not Applicable History of Rheumatoid Arthritis: Not Applicable 2. Height: 5 ft. 4 in. 162.6 cm. Weight: 150.0 lb. oz. 68.040 kg. Patient's BMI: 25.7 3. Vital Signs: BP: 160/79 Pulse: 85 Resp: 18 Temp: 02 Sat: 97 ECG Mon: 4. Pain Intensity: 8 5. Fall Risk: Dizziness: N Needs help standing or walking: N Fallen in the last 3 months: N Fall risk comments: 6. Patient on Blood Thinner: None 7. History of Hypertension: N 8. Opioid Therapy greater than 6 weeks: N Opiate Contract Signed: 9. Risk Assessment Tool Provided: LOW RISK 09/23 10. Functional Assessment Tool: 11. Recreational Drug Use: Never Drug Type: Tobacco Use: Never Smoker Tobacco Type: Amount or Packs/day: How Many Years: Alcohol Use: No Frequency: Quant:
== END | disposition home or self-care (01) ==
LOC: PAIN 08:09
DX: M54.16 Radiculopathy, lumbar region (principal); G89.29 Other chronic pain; I10 Essential (primary) hypertension; E03.9 Hypothyroidism, unspecified; M19.90 Unspecified osteoarthritis, unspecified site; E78.5 Hyperlipidemia, unspecified; M85.80 Other specified disorders of bone density and structure, unspecified site; Z79.899 Other long term (current) drug therapy; I87.2 Venous insufficiency (chronic) (peripheral); Z98.890 Other specified postprocedural states; Z88.8 Allergy status to other drugs, medicaments and biological substances; Z79.891 Long term (current) use of opiate analgesic

== ENCOUNTER → 2019-08-26 | Outpatient (CLI) | payer OTHER, BC ==
[~2019-08-26] VITALS: Ht 162.6 cm; Wt 66.7 kg
[2019-08-26 11:15] VITALS: BP 144/86
--- NOTE | 2019-08-26 11:20 | NUR ---
Pain Clinic Assessment: 1. History of Osteoarthritis: KNEES SHOULDERS History of Rheumatoid Arthritis: DENIES 2. Height: 5 ft. 4 in. 162.6 cm. Weight: 147.0 lb. oz. 66.679 kg. Patient's BMI: 25.2 3. Vital Signs: BP: 144/86 Pulse: 85 Resp: 15 Temp: 02 Sat: 95 ECG Mon: 4. Pain Intensity: 4 5. Fall Risk: Dizziness: N Needs help standing or walking: Y Fallen in the last 3 months: N Fall risk comments: USES WALKER 6. Patient on Blood Thinner: None 7. History of Hypertension: N 8. Opioid Therapy greater than 6 weeks: N Opiate Contract Signed: 9. Risk Assessment Tool Provided: LOW RISK 09/23 10. Functional Assessment Tool: 11. Recreational Drug Use: Never Drug Type: Tobacco Use: Never Smoker Tobacco Type: Amount or Packs/day: How Many Years: Alcohol Use: No Frequency: Quant:
--- NOTE | 2019-09-07 13:08 | HPC ---
[facility] [address] [address] PAIN MANAGEMENT CONSULTATION Name: HYUN THORNTON Room #: REG [facility] Arnav.#: [id number] Admission: 08/26/19 Attend Phys: Payton Landa MD Discharge: Date of : 32 Report #: [id number] THIS REPORT FOR: //name// CC: Luis Armando Landa DATE OF SERVICE: 08/26/2019 PRIMARY CARE PHYSICIAN: Luis Armando Coello DO CHIEF COMPLAINT: Return of pain in the low back and down in the left leg. HISTORY: The patient is an 88-year-old female who has been followed in the pain clinic because of chronic low back pain. As you may remember she has had back surgery. She has had extensive amounts of hardware in her lower back. She has pedicle screws in place. Has rods placed. She has undergone cage placement. She is having more pain and discomfort in the lower portion of her back, which radiates down the left and the right posterior portions of her leg. She has undergone epidural injections in the past and found that they were beneficial. She returns today indicating that her pain has reoccurred. She rates it as a 4/5. She has returned today for an injection in the left and the right low back areas because of the pain. ALLERGIES: TRAMADOL. CURRENT MEDICATIONS: Meloxicam 7.5 mg, estrogen/Prempro 0.3/1.5 mg tablets, Synthroid 100 mcg, Aldactazide 25 mg, hydrocodone 5/325 one p.o. q.4-6 hours p.r.n., gabapentin, omeprazole 20 mg, and amlodipine. PAIN CLINIC ASSESSMENT AND PQRS: The patient has a history of osteoarthritis in lower portion of her back and has had surgery with pedicle screws as well as cages placed. She is not being treated for rheumatoid arthritis. PHYSICAL EXAMINATION: GENERAL: The patient is a well-developed, well-nourished white female. Appears her stated age. She is alert and oriented x 3. Her affect is appropriate. Speech is fluent. HEENT: Normocephalic, atraumatic. Extraocular eye muscles intact. The patient is wearing glasses. NECK: Without adenopathy or JVD. Decreased range of motion of the left as well as the right shoulders. Has frozen shoulders and is unable to raise her arms above the horizon. HEART: Regular rate. ABDOMEN: Nontender. CHEST: Generally clear to auscultation. MUSCULOSKELETAL: Upper extremity muscle strength +3 for the major muscle groups [address] [address] PAIN MANAGEMENT CONSULTATION Name: HYUN THORNTON [id number] Admission: 08/26/19 Attend Phys: Payton Landa MD Discharge: Date of : 32 Report #: [id number] in the upper extremity. Lower extremity, 4+ for the major muscle groups in the lower extremity. The patient complains of pain and discomfort that continues to radiate down the L4-L5 dermatomal distribution and L4-L5 and the L5-S1 areas in the low back area. The patient notes prolonged pain with walking and standing. The patient uses a walker. IMPRESSION: 1. Lumbar radiculopathy, status post 3 surgeries of lumbar back area with fusion and pain at the L4-L5 with placement of cages and pedicle screws with rods. 2. Hypothyroidism. 3. Hyperlipidemia. 4. Osteopenia. 5. Venous insufficiency. 6. Hypertension. 7. Osteoarthritis. 8. Rosacea. RECOMMENDATIONS: We discussed treatment options with the patient. Risks and benefits of the procedure were discussed. They could include, but are not limited to infection, worsening pain, no improvement in pain, nerve damage, spinal headache and the patient elects to proceed. PROCEDURE NOTE: The patient was taken to the procedure area. She was then assisted in getting on the examination table. She was placed and assisted in getting on the prone position. Her back was sterilely prepped with a Betadine solution. A pillow had been placed under the abdomen to bolster and improve positioning. Fluoroscopy using anterior, posterior as well as lateral viewing were implemented. The patient's back was then anesthetized at the left and right L4-L5 area for a transforaminal approach. The lateral areas were anesthetized. A 20-gauge spinal needle was then advanced on the right side into the appropriate position. After appropriate positioning was noted 0.25% bupivacaine was injected 1 mL in this area. A total of 80 mg Depo-Medrol was then injected on this side. There was no complaint of pain or discomfort during the injection. The left contralateral side was treated in a like fashion. Skin wheal was placed at the left L4-L5 area. A transforaminal approach at this level was performed. After appropriate placement using fluoroscopy, a total of 80 mg Depo-Medrol was injected, 0.25% bupivacaine was injected. The patient had no pain or discomfort during the procedure. She was then taken to the recovery room where she remained for an appropriate amount of time. Total of 36 seconds fluoroscopy time was used. The patient's pain decreased to 2 at the time of discharge. She will follow up in the future as needed. [address] [address] PAIN MANAGEMENT CONSULTATION Name: HYUN THORNTON Room #: REG CLAna Ayon#: [id number] Admission: 08/26/19 Attend Phys: Payton Landa MD Discharge: Date of : 32 Report #: [id number] We would like to thank you for letting us participate in her care. We hope she continues to improve. <ELECTRONICALLY SIGNED> By: Payton Landa MD 09/07/19 [id number] [id number] Payton Landa MD /[facility]
== END | disposition home or self-care (01) ==
LOC: PAIN 06:54
DX: M54.16 Radiculopathy, lumbar region (principal); G89.29 Other chronic pain; I10 Essential (primary) hypertension; E78.5 Hyperlipidemia, unspecified; M85.80 Other specified disorders of bone density and structure, unspecified site; E03.9 Hypothyroidism, unspecified; I87.2 Venous insufficiency (chronic) (peripheral); M19.90 Unspecified osteoarthritis, unspecified site; Z98.890 Other specified postprocedural states; Z79.899 Other long term (current) drug therapy; Z88.8 Allergy status to other drugs, medicaments and biological substances; Z79.891 Long term (current) use of opiate analgesic

== ENCOUNTER → 2019-10-14 | Outpatient (CLI) | payer OTHER, BC ==
[~2019-10-14] VITALS: Ht 162.6 cm; Wt 66.0 kg
[~2019-10-14] MED LIST changes: +BIOTIN1000 MCG; +LYRICA 50 MG50 MG PO; +MEDROLDOSEPACK PO
--- NOTE | ~2019-10-14 | HPC ---
[facility] [address] [place] [address] PAIN MANAGEMENT CONSULTATION Name: HYUN THORNTON Room #: REG FRANSISCOAna José.#: [id number] Admission: 10/14/19 Attend Phys: Payton Landa MD Discharge: Date of : 32 Report #: [id number] THIS REPORT FOR: //name// CC: Luis Armando Landa DATE OF SERVICE: 10/14/2019 CHIEF COMPLAINT: New onset of shingles on the right side. HISTORY: The patient is an 88-year-old female who has been followed in the pain clinic because of lumbar radiculopathy. As you may recall, she has had surgeries in her low back area and continues to have pain, which is problematic. Epidural steroid injections in the past have been beneficial. The patient recently started to notice an itching sensation. It was found to be shingles. The patient has been treated with an antiviral. Her pain continues to be quite problematic. She is experiencing some lancinating pain, burning pain, itching pain and has had difficulty in sleeping and is unable to wear clothing on the right side. She has noticed outbreak of a rash along her right breast. It is under the axillary area on the right side. Has some itching components on her right shoulder. She has been using gabapentin. She does note some swelling in her lower extremity as a result of that medication. She has not taken any steroid medications. She has used a Lidoderm patch on her back. Does still have some scaling of her skin and significant redness associated with her skin. Applying Lidoderm patches can exacerbate her discomfort when she removes them. ALLERGIES: TRAZODONE, TRAMADOL. CURRENT MEDICATIONS: Meloxicam 7.5 mg, estrogen/Prempro 0.3/1.5 mg, Synthroid 100 mcg, Aldactazide 25 mg, hydrocodone 5/325 one p.o. q. 4-6 hours p.r.n., gabapentin, omeprazole 20 mg, and amlodipine. PAIN CLINIC ASSESSMENT AND PQRS: 1. History of osteoarthritis. The patient has osteoarthritic changes in her knees as well as in her shoulders. She denies rheumatoid arthritis. 2. Height 5 feet 4 inches, weight 145 pounds, BMI is 25.0. 3. Vital signs: Blood pressure 134/77, ____, respiratory rate 20, room air saturation 96%. 4. Pain is 8/10. 5. Fall history: The patient has not fallen. She does use a walker. 6. Blood thinner. The patient is not on a blood thinning medication. 7. Hypertension. The patient is not being treated for hypertension. 8. Opioids greater than 6 weeks. The patient received medication from one source, the pain clinic. [address] [address] PAIN MANAGEMENT CONSULTATION Name: HILLARYHYUN JOSE R Room #: REG CLI [facility].#: [id number] Admission: 10/14/19 Attend Phys: Payton Landa MD Discharge: Date of : 32 Report #: [id number] 9. Risks of opioid use, low. 10. Functional assessment tool, . 11. Recreational drug use: The patient denies. 12. Tobacco: The patient has never smoked. 13. Alcohol. The patient denies frequent use of alcoholic beverages. PHYSICAL EXAMINATION: GENERAL: The patient is a well-developed, well-nourished white female of 88 years. She appears her stated age. She is alert and oriented. She is accompanied by her son, who is Emergency Room physician. She has pain and discomfort in the right shoulder area. The patient has signs of recent shingles outbreak. There is some scaling on her left breast area as well as pain and irritation with redness under her right armpit. She grimaces and grasps her right breast area a number of times during our conversation secondary to lancinating pain. The patient has significant swelling in the left lower extremity. IMPRESSION: 1. New onset of post-herpetic neuralgia/shingles involving the right T4-T6 dermatomal distribution. 2. History of lumbar radiculopathy, status post 3 surgeries in the lumbar area with pain in the L4-L5 dermatomal distribution with cages and pedicle screws in place. 3. Hypothyroidism. 4. Hyperlipidemia. 5. Osteoarthritis, osteopenia. 6. Venous insufficiency. 7. Hypertension. 8. Osteoarthritis. 9. Rosacea. RECOMMENDATIONS: We discussed treatment options with the patient and her son. The risk and benefits of an epidural injection or sympathectomy in the thoracic area were discussed. Given the patient's somewhat fragile situation, I think the placement of an epidural catheter with local anesthetic in the thoracic area might be problematic. Again, because of the cardiac accelerators up in this area, she may develop some light drop in her blood pressure. I think to try at least at this juncture to continue with a conservative approach would be reasonable. We will have the patient try Lyrica 50 mg 1 p.o. t.i.d. and increase this as she is able to tolerate it. Hopefully, she will have less swelling and discomfort in the lower extremity and hopefully she will find that this medication is helpful with the lancinating and shooting pains associated with shingles. We discussed the use of amitriptyline. At this juncture, the patient's physical status would probably preclude use of this medications. She might note some problems with hypotension and possibly follow. We will have the patient try a Medrol Dosepak and take it at this juncture. We may consider an [facility] [address] [place] [address] PAIN MANAGEMENT CONSULTATION Name: HYUN THORNTON Room #: REG [facility]..#: [id number] Admission: 10/14/19 Attend Phys: Payton Landa MD Discharge: Date of : 32 Report #: [id number] additional Dosepak after she takes the initial one. She continues to have pain, which is uncomfortable. Because of the breakdown and irritation of her skin placement of Lidoderm patches at this point, I think might be quite problematic and become more painful when she removes them. We have discussed the use of RectiCare (5% lidocaine solution) applied to the affected area to help with the pain has been discussed. She will call us in a few days to tell us how things are going. We would like to thank you for letting us participate in her care. We hope she continues to improve. By: [id number] Payton Landa MD /nt
[2019-10-14 11:05] VITALS: BP 134/77
--- NOTE | 2019-10-14 11:11 | NUR ---
Pain Clinic Assessment: 1. History of Osteoarthritis: KNEES SHOULDERS History of Rheumatoid Arthritis: DENIES 2. Height: 5 ft. 4 in. 162.6 cm. Weight: 145.6 lb. oz. 66.044 kg. Patient's BMI: 25.0 3. Vital Signs: BP: 134/77 Pulse: 124 Resp: 20 Temp: 02 Sat: 96 ECG Mon: 4. Pain Intensity: 8 5. Fall Risk: Dizziness: N Needs help standing or walking: N Fallen in the last 3 months: N Fall risk comments: USES WALKER 6. Patient on Blood Thinner: None 7. History of Hypertension: N 8. Opioid Therapy greater than 6 weeks: N Opiate Contract Signed: 9. Risk Assessment Tool Provided: LOW RISK 09/23 10. Functional Assessment Tool: 11. Recreational Drug Use: Never Drug Type: Tobacco Use: Never Smoker Tobacco Type: Amount or Packs/day: How Many Years: Alcohol Use: No Frequency: Quant:
== END ==
LOC: PAIN 06:42
DX: B02.29 Other postherpetic nervous system involvement (principal); M54.16 Radiculopathy, lumbar region; E03.9 Hypothyroidism, unspecified; E78.5 Hyperlipidemia, unspecified; M19.90 Unspecified osteoarthritis, unspecified site; I10 Essential (primary) hypertension; L71.9 Rosacea, unspecified

== ENCOUNTER → 2019-12-02 | Outpatient (CLI) | payer OTHER, BC ==
[~2019-12-02] VITALS: Ht 160 cm; Wt 64.4 kg
[~2019-12-02] MED LIST changes: -GABAPENTIN 100100 MG PO; +NEURONTIN 300300 M1 PO
[2019-12-02 10:49] VITALS: BP 125/64
--- NOTE | 2019-12-02 10:57 | NUR ---
Pain Clinic Assessment: 1. History of Osteoarthritis: KNEES SHOULDERS SPINE History of Rheumatoid Arthritis: DENIES 2. Height: 5 ft. 3 in. 160.0 cm. Weight: 142.0 lb. oz. 64.411 kg. Patient's BMI: 25.2 3. Vital Signs: BP: 125/64 Pulse: 69 Resp: 14 Temp: 02 Sat: 96 ECG Mon: 4. Pain Intensity: 5 5. Fall Risk: Dizziness: N Needs help standing or walking: Y Fallen in the last 3 months: N Fall risk comments: USES WALKER 6. Patient on Blood Thinner: None 7. History of Hypertension: N 8. Opioid Therapy greater than 6 weeks: N Opiate Contract Signed: 9. Risk Assessment Tool Provided: LOW RISK 09/23 10. Functional Assessment Tool: 11. Recreational Drug Use: Never Drug Type: Tobacco Use: Never Smoker Tobacco Type: Amount or Packs/day: How Many Years: Alcohol Use: No Frequency: Quant:
--- NOTE | 2019-12-16 08:21 | HPC ---
[facility] [place] [address] PAIN MANAGEMENT CONSULTATION Name: HYUN THORNTON Room #: REG ADELAIDA Arnav.#: [id number] Admission: 12/02/19 Attend Phys: Payton Landa MD Discharge: Date of : 32 Report #: [id number] THIS REPORT FOR: cc: Luis Armando Coello,Payton Bellamy MD ~ CC: Luis Armando Landa DATE OF SERVICE: 12/02/2019 CHIEF COMPLAINT: Shingles pain. HISTORY: The patient is an 88-year-old female who has been followed in the pain clinic because of pain and discomfort associated with shingles. She has returned to the pain clinic for treatment. She has pain in her back with pain radiating down into her legs. She has undergone an epidural steroid injection in the past and found this helpful. She has returned today for epidural injections. Pain radiates down into the left and right leg in the posterior thigh area. ALLERGIES: TRAZODONE, TRAMADOL. CURRENT MEDICATIONS: Meloxicam 7.5 mg, estrogen/Prempro 0.3/1.5 mg, Synthroid 100 mcg, Aldactazide 25 mg, hydrocodone 5/325 one p.o. q.4-6 hours p.r.n., gabapentin, omeprazole 20 mg, and amlodipine. PAIN CLINIC ASSESSMENT AND PQRS: 1. History of osteoarthritis: The patient has osteoarthritic changes in her knees as well as in her shoulders. She denies being treated for rheumatoid arthritis. 2. Height: 5 feet 4 inches, weight 142 pounds, BMI is 25. 3. Vital Signs: Blood pressure 125/64, pulse 69, respiratory rate 14, room air saturation is 96%. 4. Pain intensity: 5/10. 5. Fall Risk: The patient has not fallen, but does ambulate with use of a walker. 6. Blood thinner: The patient is not on a blood thinning medication. 7. Hypertension: The patient is not being treated for hypertension. 8. Opioid therapy: Greater than 6 weeks. 9. Risk assessment tool: Low for opioid use, 09/23. 10. Functional assessment tool: . 11. Recreational drug use: The patient denies. 12. Alcohol: The patient denies frequent use of alcoholic beverages. PHYSICAL EXAMINATION: [facility] [address] [place] [address] PAIN MANAGEMENT CONSULTATION Name: HYUN THORNTON Room #: REG FRANSISCOAna Ayon#: [id number] Admission: 12/02/19 Attend Phys: Payton Landa MD Discharge: Date of : 32 Report #: [id number] GENERAL: The patient is a well-developed, well-nourished white female. Appears her stated age of 88. She is alert and oriented x 3. Her affect is appropriate. Speech is fluent. She is unaccompanied today. Complains of pain and discomfort in the lower portion of her back with pain that is radiating down in the L4-L5 dermatomal distribution on the both sides. She also has pain and discomfort in the area of the right shoulder with pain underneath her left breast area and some redness in her right armpit. IMPRESSION: 1. Lumbar radiculopathy today in the L4-L5 dermatomal distribution with pedicles and cages. 2. Hypothyroidism. 3. Hyperlipidemia. 4. Osteoarthritis/osteopenia. 5. Venous insufficiency. 6. Hypertension. 7. Osteoarthritis. 8. Rosacea. 9. Post-herpetic neuralgia with shingles involving the right T4 through T6 distribution. RECOMMENDATIONS: We discussed treatment options. PROCEDURE NOTE: The patient was taken to the procedure area. She was then assisted in getting on the examination table. Her back was sterilely prepped with a Betadine solution and allowed to dry. The L4-L5 interspace on the left and right were identified. A 0.25% bupivacaine was infiltrated using a 25-gauge needle. After the areas had been anesthetized, a 22-gauge spinal needle was then advanced to the left and right L4-L5 areas using the transforaminal approach. A total of 80 mg triamcinolone was placed in the left transforaminal area at L4-L5 and the right transforaminal area of L4-L5. The patient tolerated the procedure well. There were no complications. She remained in the Pain Clinic for an appropriate amount of time. Approximately 30 seconds fluoroscopy time was used. We would like to thank you for letting us participate in her care. We hope she continues to improve. <ELECTRONICALLY SIGNED> By: Payton Landa MD 12/16/19 0821 [id number] Payton Landa MD /jeanette
== END | disposition home or self-care (01) ==
LOC: PAIN 06:46
DX: M54.16 Radiculopathy, lumbar region (principal); G89.29 Other chronic pain; I10 Essential (primary) hypertension; E78.5 Hyperlipidemia, unspecified; E03.9 Hypothyroidism, unspecified; M19.90 Unspecified osteoarthritis, unspecified site; Z98.890 Other specified postprocedural states; Z79.899 Other long term (current) drug therapy; Z86.718 Personal history of other venous thrombosis and embolism; Z79.01 Long term (current) use of anticoagulants; Z88.8 Allergy status to other drugs, medicaments and biological substances

== ENCOUNTER → 2020-03-14 | Outpatient (CLI) | payer OTHER, BC ==
[~2020-03-14] VITALS: Ht 162.6 cm; Wt 65.3 kg
[2020-03-14 12:34] VITALS: BP 131/86
--- NOTE | 2020-03-14 12:38 | NUR ---
Pain Clinic Assessment: 1. History of Osteoarthritis: KNEES SHOULDERS SPINE History of Rheumatoid Arthritis: DENIES 2. Height: 5 ft. 4 in. 162.6 cm. Weight: 144.0 lb. oz. 65.318 kg. Patient's BMI: 24.7 3. Vital Signs: BP: 131/86 Pulse: 76 Resp: 18 Temp: 02 Sat: 97 ECG Mon: 4. Pain Intensity: 5 5. Fall Risk: Dizziness: N Needs help standing or walking: N Fallen in the last 3 months: N Fall risk comments: USES WALKER 6. Patient on Blood Thinner: None 7. History of Hypertension: N 8. Opioid Therapy greater than 6 weeks: Y Opiate Contract Signed: 9. Risk Assessment Tool Provided: LOW RISK 09/23 10. Functional Assessment Tool: 11. Recreational Drug Use: Never Drug Type: Tobacco Use: Never Smoker Tobacco Type: Amount or Packs/day: How Many Years: Alcohol Use: No Frequency: Quant:
--- NOTE | 2020-03-21 16:03 | HPC ---
[facility] [place] [address] PAIN MANAGEMENT CONSULTATION Name: HYUN THORNTON Room #: REG [facility] M..#: [id number] Admission: 03/14/20 Attend Phys: Payton Landa MD Discharge: Date of : 32 Report #: [id number] THIS REPORT FOR: cc: Luis Armando Coello,Payton Bellamy MD ~ CC: Luis Armando Landa DATE OF SERVICE: 03/14/2020 CHIEF COMPLAINT: Left leg pain and pain down into the right leg as well. HISTORY: The patient is an 89-year-old female who has been followed in the pain clinic because of chronic pain. She has 2 pain conditions. She suffers from shingles with post herpetic neuralgia. This has been since 09/2019. The patient states that she has been taking CBD oil and feels that it may be helping. She also has pain and discomfort in lower portion of her back. She has undergone back surgery and has had rods and pedicle screws placed. She has noticed a worsening of her pain and has returned today with the hopes of undergoing an epidural injection in the low back area. ALLERGIES: TRAZODONE, TRAMADOL. CURRENT MEDICATIONS: Meloxicam 7.5 mg, estrogen/Prempro 0.3/1.5 mg, Synthroid 100 mcg, Aldactazide 25 mg, hydrocodone 5/325 one p.o. every 4-6 hours p.r.n., gabapentin, omeprazole 20 mg, and amlodipine. PAIN CLINIC ASSESSMENT AND PQRS: 1. The patient has a history of osteoarthritis. The patient has had arthritic changes in her knees as well as in her shoulder. Denies being treated for rheumatoid arthritis. 2. Height 5 feet 4 inches, weight 144 pounds, BMI is 24.7. 3. Vital signs: Blood pressure is 131/86, pulse 76, respiratory rate 18, room air saturation 97%. 4. Pain intensity is 5/10. 5. Fall history, the patient is using a walker. She has not fallen in the last 3 months. 6. Blood thinner. The patient is not on a blood thinning medication. 7. Hypertension. The patient is not being treated for hypertension. 8. Opioids greater than 6 weeks. The patient is not on an opioid regimen. 9. Risk assessment tool, low for opioid use. 10. Functional assessment tool, . 11. Recreational drug use. The patient denies. 12. Tobacco: The patient never smoked. 13. Alcohol. The patient denies frequent use of alcoholic beverages. [address] [address] PAIN MANAGEMENT CONSULTATION Name: HYUN THORNTON JOSE R Room #: REG CL Arnav.#: [id number] Admission: 03/14/20 Attend Phys: Payton Landa MD Discharge: Date of : 32 Report #: [id number] PHYSICAL EXAMINATION: GENERAL: The patient is a well-developed, well-nourished white female. Appears her stated age. She is alert and oriented x 3. Her affect is appropriate. Speech is fluent. HEENT: Normocephalic, atraumatic. Extraocular eye muscles intact. Sclerae nonicteric. Mucous membranes are moist. MUSCULOSKELETAL: The patient has complaints of pain and discomfort in the L4-L5 dermatomal distribution on the left and right side. She has some discomfort in her right shoulder and with pain underneath her left breast as a result of shingles/postherpetic neuralgia. IMPRESSION: 1. Lumbar radiculopathy at the L4-L5 dermatomal distribution with pedicle screws and cages. 2. Hypothyroidism. 3. Hyperlipidemia. 4. Osteoarthritis/osteopenia, venous insufficiency, hypertension, osteoarthritis. 5. Rosacea. 6. Postherpetic neuralgia with shingles involving the right T4 through T6 distribution. RECOMMENDATIONS: We discussed treatment options with the patient. At this juncture, we will proceed with an epidural injection at the L4-L5 area using the transforaminal process on the left and right side. Risks and benefits of the procedure were discussed. We discussed the problems with Covid-19. It is pandemic at this juncture. We reminded the patient that should she become infected. She may have a more difficult time eradicating the virus given that steroids decrease one's immunity/ability to respond to immune problem. She elects to proceed. PROCEDURE NOTE: The patient was taken to the procedure area. She was then assisted in getting on examination table. Her back was sterilely prepped with a Betadine solution. A pillow was placed under the abdomen to bolster and improve positioning. Fluoroscopy using anterior, posterior as well as lateral viewing were implemented. At the L4-L5 area on the left and right, this area was sterilely prepped with a Betadine solution and allowed to dry. A 0.25% bupivacaine was infiltrated using a 25-gauge needle to anesthetize the skin. A 20-gauge spinal needle was then advanced into the L4-L5 area using anterior as well as lateral viewing with fluoroscopy. After appropriate placement, a total of 80 mg Depo-Medrol was injected. The contralateral left side was treated in a like fashion. A 0.25% bupivacaine was used to anesthetize the skin. A 20-gauge spinal needle was then advanced into the area of the L4-L5 area using the transforaminal approach. A total of 80 mg Depo-Medrol was injected after appropriate placement was noted. The patient tolerated the procedure well. Her [facility] [address] [place] [address] PAIN MANAGEMENT CONSULTATION Name: HYUN THORNTON Room #: REG [facility].#: [id number] Admission: 03/14/20 Attend Phys: Payton Landa MD Discharge: Date of : 32 Report #: [id number] pain decreased from 5 to 3 at the time of discharge. A total of 41 seconds fluoroscopy time was used. We would like to thank you for letting us participate in her care. We hope she continues to improve. <ELECTRONICALLY SIGNED> By: Payton Landa MD 03/21/20 1603 [id number] Payton Landa MD /nt
== END | disposition home or self-care (01) ==
LOC: PAIN 06:42
PROVIDERS: ATTEND Anesthesiology Pain Medicine
DX: M54.16 Radiculopathy, lumbar region (principal); G89.29 Other chronic pain; I10 Essential (primary) hypertension; E78.5 Hyperlipidemia, unspecified; E03.9 Hypothyroidism, unspecified; M19.90 Unspecified osteoarthritis, unspecified site; M85.80 Other specified disorders of bone density and structure, unspecified site; Z98.890 Other specified postprocedural states; Z79.899 Other long term (current) drug therapy; Z88.8 Allergy status to other drugs, medicaments and biological substances

== ENCOUNTER → 2020-06-06 | Outpatient (CLI) | payer OTHER, BC ==
[~2020-06-06] VITALS: Ht 160 cm; Wt 63.0 kg
[~2020-06-06] MED LIST changes: +CBD TINCTURE; +DULCOLAX STOOL100 M1 PO; +DULCOLAX5 MG PO; +NEURONTIN300 MG PO
[2020-06-06 12:21] VITALS: BP 143/77
--- NOTE | 2020-06-06 12:32 | NUR ---
Pain Clinic Assessment: 1. History of Osteoarthritis: KNEES SHOULDERS SPINE History of Rheumatoid Arthritis: DENIES 2. Height: 5 ft. 3 in. 160.0 cm. Weight: 139.0 lb. oz. 63.050 kg. Patient's BMI: 24.6 3. Vital Signs: BP: 143/77 Pulse: 78 Resp: 16 Temp: 02 Sat: 98 ECG Mon: 4. Pain Intensity: 4 5. Fall Risk: Dizziness: N Needs help standing or walking: N Fallen in the last 3 months: N Fall risk comments: USES WALKER 6. Patient on Blood Thinner: None 7. History of Hypertension: N 8. Opioid Therapy greater than 6 weeks: Y Opiate Contract Signed: 9. Risk Assessment Tool Provided: LOW RISK 1 10. Functional Assessment Tool: 11. Recreational Drug Use: Never Drug Type: Tobacco Use: Never Smoker Tobacco Type: Amount or Packs/day: How Many Years: Alcohol Use: No Frequency: Quant:
--- NOTE | 2020-06-15 08:22 | HPC ---
[facility] [place] [address] PAIN MANAGEMENT CONSULTATION Name: HYUN THORNTON Room #: REG [facility] Mando.Ruchi.#: [id number] Admission: 06/06/20 Attend Phys: Payton Landa MD Discharge: Date of : 32 Report #: [id number] THIS REPORT FOR: cc: SABI CHI MD Physician not on staff Payton Landa MD ~ CC: SABI Hart Physician staff DATE OF SERVICE: 06/06/2020 CHIEF COMPLAINT: Pain in the left leg as well as the right. HISTORY: The patient is a very pleasant 89-year-old female who has been followed in the pain clinic. She has 2 pains. She does have pain in the right axillary area as a result of shingles. This post-herpetic neuralgia is still quite problematic. This has been problematic since 09/2019. She continues to find that this is irritated with activities of daily living and rates that the shingles pain as a 5/10. She is having pain and discomfort in lower portion of her back. She has had rods and pedicle screws placed. She does have pain, which continues to radiate down in the L4-L5 dermatomal distribution. She has returned today with the hopes of undergoing another epidural steroid injection via the transforaminal approach to help decrease her discomfort. ALLERGIES: TRAZODONE, TRAMADOL. CURRENT MEDICATIONS: Meloxicam 7.5 mg, estrogen/Prempro 0.3/1.5, Synthroid 100 mcg, Aldactazide 25 mg, hydrocodone 5/325 one p.o. every 4-6 hours p.r.n., gabapentin, omeprazole 20 mg, and amlodipine. PAIN CLINIC ASSESSMENT AND PQRS: 1. The patient has a history of osteoarthritis. She has arthritic changes in her knees as well as in her shoulder. She is not being treated for rheumatoid arthritis. 2. Height 5 feet 3 inches, weight 139 pounds, BMI is 24. 3. Vital Signs: Blood pressure 143/77, pulse 78, respiratory rate 16, room air saturation is 98%. 4. Pain intensity 12/29. 5. Fall history: The patient has not fallen. Does use a rolling walker. 6. Blood thinner. The patient is not on a blood thinning medication. 7. Hypertension. The patient is not being treated for hypertension. 8. Opioids greater than 6 weeks. The patient receives medication from the pain clinic. 9. Risk assessment tool, low for opioid use. [address] [address] PAIN MANAGEMENT CONSULTATION Name: HYUN THORNTON [id number]mission: 06/06/20 Attend Phys: Payton Landa MD Discharge: Date of : 32 Report #: [id number] 10. Functional assessment tool . 11. Recreational drug use. The patient denies. 12. Tobacco: The patient has never smoked. 13. Alcohol. The patient denies frequent use of alcoholic beverages. PHYSICAL EXAMINATION: GENERAL: The patient is a well-developed, well-nourished white female. She is alert and oriented. She appears appropriate for her age. HEENT: Normocephalic, atraumatic. Extraocular eye muscles intact. Sclerae nonicteric. Mucous membranes are moist. The patient is wearing a facial covering. She is accompanied by her son. MUSCULOSKELETAL: Upper extremity muscle strength judged to be 4+/5 on the upper extremities. The patient has pain and discomfort in the lower portion of her back in the L4-L5 dermatomal distribution in the left and the right side. The patient also has pain and discomfort underneath the left breast as a result of shingles/postherpetic neuralgia. IMPRESSION: 1. Lumbar radiculopathy at the L4-L5 dermatomal distribution on both left and right side with screws and rods in place. 2. Hypothyroidism. 3. Hyperlipidemia. 4. Osteoarthritis/osteopenia. 5. Venous insufficiency. 6. Hypertension. 7. Osteoarthritis. 8. Rosacea 9. Postherpetic neuralgia with shingles involving the right T4 through T6 distribution. RECOMMENDATIONS: We discussed treatment options with the patient. The patient has returned to the pain clinic because of worsening of pain and discomfort down in the lower areas. She notes some numbness and tingling along the L4-L5 dermatomal distribution. She would like to proceed with an epidural steroid injection. She is aware that COVID-19 is pandemic. She is aware that should she get infected, she may have a more difficult time with the virus. She would like to proceed. PROCEDURE NOTE: The patient was taken to the procedure area. She was then assisted in getting on the examination table. Her back was sterilely prepped with a chlorhexidine solution and allowed to dry. A 0.25% bupivacaine was infiltrated into the skin at the L4-L5 left and L4-L5 right areas. A 25-gauge needle was then used to anesthetize the needle pathways. A 20-gauge spinal needle was then advanced on the right side to the appropriate position using fluoroscopy for anterior as well as lateral viewing. A total of 80 mg Depo-Medrol was injected on this side. The left side, which was treated in a [address] [address] PAIN MANAGEMENT CONSULTATION Name: HYUN THORNTON Room #: REG [facility].#: [id number] Admission: 06/06/20 Attend Phys: Payton Landa MD Discharge: Date of : 32 Report #: [id number] like fashion was then approached. A 20-gauge spinal needle was then advanced using the anterior and posterior lateral viewing were corroborated appropriate placement of the needle. Aspiration was negative. There was no complaint of pain or discomfort during either injection. A total of 80 mg triamcinolone was injected on the left side. The patient tolerated the procedure well. The patient's pain was 2/10 at the time of discharge. We would like to thank you for letting us participate in her care. We hope she continues to improve. <ELECTRONICALLY SIGNED> By: aPyton Landa MD 06/15/20 0822 [id number] [id number] Payton Landa MD /[facility]
== END | disposition home or self-care (01) ==
LOC: PAIN 06:55
PROVIDERS: ATTEND Anesthesiology Pain Medicine
DX: M54.16 Radiculopathy, lumbar region (principal); G89.29 Other chronic pain; I10 Essential (primary) hypertension; E03.9 Hypothyroidism, unspecified; E78.5 Hyperlipidemia, unspecified; M19.90 Unspecified osteoarthritis, unspecified site; I87.2 Venous insufficiency (chronic) (peripheral); B02.29 Other postherpetic nervous system involvement; Z98.890 Other specified postprocedural states; Z79.899 Other long term (current) drug therapy

== ENCOUNTER → 2020-09-05 | Outpatient (CLI) | payer OTHER, BC ==
[~2020-09-05] VITALS: Ht 160 cm; Wt 61.2 kg
[2020-09-05 12:43] VITALS: BP 129/74
--- NOTE | 2020-09-05 12:55 | NUR ---
Pain Clinic Assessment: 1. History of Osteoarthritis: KNEES SHOULDERS SPINE History of Rheumatoid Arthritis: DENIES 2. Height: 5 ft. 3 in. 160.0 cm. Weight: 135.0 lb. oz. 61.236 kg. Patient's BMI: 23.9 3. Vital Signs: BP: 129/74 Pulse: 84 Resp: 14 Temp: 02 Sat: 97 ECG Mon: 4. Pain Intensity: 5 5. Fall Risk: Dizziness: N Needs help standing or walking: Y Fallen in the last 3 months: N Fall risk comments: USES WALKER 6. Patient on Blood Thinner: None 7. History of Hypertension: N 8. Opioid Therapy greater than 6 weeks: Y Opiate Contract Signed: 9. Risk Assessment Tool Provided: LOW RISK 1 10. Functional Assessment Tool: 11. Recreational Drug Use: Never Drug Type: Tobacco Use: Never Smoker Tobacco Type: Amount or Packs/day: How Many Years: Alcohol Use: No Frequency: Quant:
== END | disposition home or self-care (01) ==
LOC: PAIN 07:00
PROVIDERS: ATTEND Anesthesiology Pain Medicine
DX: M54.16 Radiculopathy, lumbar region (principal); G89.29 Other chronic pain; I10 Essential (primary) hypertension; E78.5 Hyperlipidemia, unspecified; E03.9 Hypothyroidism, unspecified; M19.90 Unspecified osteoarthritis, unspecified site; Z98.890 Other specified postprocedural states; Z79.899 Other long term (current) drug therapy; Z96.659 Presence of unspecified artificial knee joint; Z96.612 Presence of left artificial shoulder joint; Z88.8 Allergy status to other drugs, medicaments and biological substances

== ENCOUNTER → 2020-12-05 | Outpatient (CLI) | payer OTHER, BC ==
[~2020-12-05] VITALS: Ht 162.6 cm; Wt 63.0 kg
[2020-12-05 13:07] VITALS: BP 132/77
--- NOTE | 2020-12-05 13:14 | NUR ---
Pain Clinic Assessment: 1. History of Osteoarthritis: KNEES SHOULDERS SPINE History of Rheumatoid Arthritis: DENIES 2. Height: 5 ft. 4 in. 162.6 cm. Weight: 139.0 lb. oz. 63.050 kg. Patient's BMI: 23.8 3. Vital Signs: BP: 132/77 Pulse: 73 Resp: 16 Temp: 02 Sat: 96 ECG Mon: 4. Pain Intensity: 4 5. Fall Risk: Dizziness: N Needs help standing or walking: N Fallen in the last 3 months: N Fall risk comments: USES WALKER 6. Patient on Blood Thinner: None 7. History of Hypertension: N 8. Opioid Therapy greater than 6 weeks: Y Opiate Contract Signed: 9. Risk Assessment Tool Provided: LOW RISK 0 10. Functional Assessment Tool: 11. Recreational Drug Use: Never Drug Type: Tobacco Use: Never Smoker Tobacco Type: Amount or Packs/day: How Many Years: Alcohol Use: No Frequency: Quant:
== END ==
LOC: PAIN 06:46
PROVIDERS: ATTEND Anesthesiology Pain Medicine
DX: M54.5 Low back pain (principal); I10 Essential (primary) hypertension; E78.5 Hyperlipidemia, unspecified; E03.9 Hypothyroidism, unspecified; M19.90 Unspecified osteoarthritis, unspecified site; Z79.899 Other long term (current) drug therapy

== ENCOUNTER → 2021-03-13 | Outpatient (CLI) | payer OTHER, BC ==
[~2021-03-13] VITALS: Ht 162.6 cm; Wt 64.4 kg
[2021-03-13 10:15] VITALS: BP 112/63
--- NOTE | 2021-03-13 10:20 | NUR ---
Pain Clinic Assessment: 1. History of Osteoarthritis: KNEES SHOULDERS SPINE History of Rheumatoid Arthritis: DENIES 2. Height: 5 ft. 4 in. 162.6 cm. Weight: 142.0 lb. oz. 64.411 kg. Patient's BMI: 24.4 3. Vital Signs: BP: 112/63 Pulse: 74 Resp: 16 Temp: 02 Sat: 96 ECG Mon: 4. Pain Intensity: 6 5. Fall Risk: Dizziness: N Needs help standing or walking: N Fallen in the last 3 months: N Fall risk comments: USES WALKER 6. Patient on Blood Thinner: None 7. History of Hypertension: N 8. Opioid Therapy greater than 6 weeks: Y Opiate Contract Signed: 9. Risk Assessment Tool Provided: LOW RISK 0 10. Functional Assessment Tool: 11. Recreational Drug Use: Never Drug Type: Tobacco Use: Never Smoker Tobacco Type: Amount or Packs/day: How Many Years: Alcohol Use: No Frequency: Quant:
== END | disposition home or self-care (01) ==
LOC: PAIN 07:07
PROVIDERS: ATTEND Anesthesiology Pain Medicine
DX: M54.16 Radiculopathy, lumbar region (principal); G89.29 Other chronic pain; B02.29 Other postherpetic nervous system involvement; I10 Essential (primary) hypertension; E03.9 Hypothyroidism, unspecified; E78.5 Hyperlipidemia, unspecified; M19.90 Unspecified osteoarthritis, unspecified site; M85.80 Other specified disorders of bone density and structure, unspecified site; Z98.890 Other specified postprocedural states; Z79.899 Other long term (current) drug therapy; Z96.612 Presence of left artificial shoulder joint; Z96.659 Presence of unspecified artificial knee joint; Z88.8 Allergy status to other drugs, medicaments and biological substances

== ENCOUNTER → 2021-06-05 | Outpatient (CLI) | payer OTHER, BC ==
[~2021-06-05] VITALS: Ht 162.6 cm; Wt 64.7 kg
[2021-06-05 13:13] VITALS: BP 130/84
--- NOTE | 2021-06-05 13:32 | NUR ---
Pain Clinic Assessment: 1. History of Osteoarthritis: KNEES SHOULDERS SPINE History of Rheumatoid Arthritis: DENIES 2. Height: 5 ft. 4 in. 162.6 cm. Weight: 142.6 lb. oz. 64.683 kg. Patient's BMI: 24.5 3. Vital Signs: BP: 130/84 Pulse: 74 Resp: 14 Temp: 02 Sat: 97 ECG Mon: 4. Pain Intensity: 4/5 REST 5. Fall Risk: Dizziness: N Needs help standing or walking: Y Fallen in the last 3 months: N Fall risk comments: USES WALKER 6. Patient on Blood Thinner: None 7. History of Hypertension: N 8. Opioid Therapy greater than 6 weeks: Y Opiate Contract Signed: 9. Risk Assessment Tool Provided: LOW RISK 0 10. Functional Assessment Tool: 11. Recreational Drug Use: Never Drug Type: Tobacco Use: Never Smoker Tobacco Type: Amount or Packs/day: How Many Years: Alcohol Use: No Frequency: Quant:
== END | disposition home or self-care (01) ==
LOC: PAIN 10:58
PROVIDERS: ATTEND Anesthesiology Pain Medicine
DX: M54.16 Radiculopathy, lumbar region (principal); G89.29 Other chronic pain; I10 Essential (primary) hypertension; E78.5 Hyperlipidemia, unspecified; M19.90 Unspecified osteoarthritis, unspecified site; E03.9 Hypothyroidism, unspecified; Z98.890 Other specified postprocedural states; Z79.899 Other long term (current) drug therapy; Z96.612 Presence of left artificial shoulder joint

== ENCOUNTER → 2021-09-04 | Outpatient (CLI) | payer OTHER, BC ==
[~2021-09-04] VITALS: Ht 162.6 cm; Wt 67.2 kg
[~2021-09-04] MED LIST changes: +MIRALAX17 G1 PO
[2021-09-04 11:15] VITALS: BP 121/64
--- NOTE | 2021-09-04 11:48 | NUR ---
Pain Clinic Assessment: 1. History of Osteoarthritis: KNEES SHOULDERS SPINE History of Rheumatoid Arthritis: DENIES 2. Height: 5 ft. 4 in. 162.6 cm. Weight: 148.2 lb. oz. 67.223 kg. Patient's BMI: 25.4 3. Vital Signs: BP: 121/64 Pulse: 73 Resp: 20 Temp: 02 Sat: 97 ECG Mon: 4. Pain Intensity: 5 5. Fall Risk: Dizziness: N Needs help standing or walking: Y Fallen in the last 3 months: N Fall risk comments: USES WALKER 6. Patient on Blood Thinner: None 7. History of Hypertension: N 8. Opioid Therapy greater than 6 weeks: Y Opiate Contract Signed: 9. Risk Assessment Tool Provided: LOW RISK 0 10. Functional Assessment Tool: 11. Recreational Drug Use: Never Drug Type: Tobacco Use: Former Smoker Tobacco Type: Amount or Packs/day: How Many Years: Alcohol Use: Yes Frequency: Weekly Quant: 1 OR 2
== END | disposition home or self-care (01) ==
LOC: PAIN 10:15
PROVIDERS: ATTEND Anesthesiology Pain Medicine
DX: M54.16 Radiculopathy, lumbar region (principal); G89.29 Other chronic pain; I10 Essential (primary) hypertension; E78.5 Hyperlipidemia, unspecified; M19.90 Unspecified osteoarthritis, unspecified site; E03.9 Hypothyroidism, unspecified; Z96.612 Presence of left artificial shoulder joint; Z96.659 Presence of unspecified artificial knee joint; Z98.890 Other specified postprocedural states; Z79.899 Other long term (current) drug therapy; Z88.8 Allergy status to other drugs, medicaments and biological substances